=== PATIENT | male | born 1950 | race Caucasian/White ===

== ENCOUNTER → 2017-08-18 10:51 | Outpatient (CLI) | payer MEDICARE, OTHER, SELFPAY ==
[2017-08-18 12:33] LABS: Add Manual Diff / Slide Review NO; Basophils Percent Auto 0.4 % (0-2); Eosinophils Percent Auto 1.8 % (2-4); Hematocrit 41.2 % (41-53); Hemoglobin 14.1 g/dL (13.5-17.5); Lymphocytes Percent Auto 15.5 % (25-40); Mean Corpuscular HGB Conc 34.2 % (30-36); Mean Corpuscular Volume 93.6 fL (80-100); Monocytes Percent Auto 9.2 % (3-14); Neutrophils Absolute Auto 4200 /uL (3000-5900); Neutrophils Percent Auto 73.1 % (50-75); Platelet Count 181 X10^3/uL (150-400); Red Cell Distribution Width 14.2 % (11.6-14.8); White Blood Cell Count 5.8 X10^3/uL (4.5-11.0)
[2017-08-18 13:30] LABS: Carbon Dioxide 30 mmol/L (22-32); Chloride 100 mmol/L (98-107); HEMOLYSIS < 15 (0-50); Potassium 4.2 mmol/L (3.4-5.1); Sodium 141 mmol/L (137-145)
[2017-09-01 16:52] VITALS: BMI 28.5
== END ==
PROVIDERS: Visit Provider Physician Assistant Surgical
DX: M16.12 Unilateral primary osteoarthritis, left hip (principal); Z01.818 Encounter for other preprocedural examination; Z01.812 Encounter for preprocedural laboratory examination
CPT/HCPCS: 36415; 80051; 85025; 93005

== ENCOUNTER 2017-09-01 15:49 | Inpatient (IN) | payer MEDICARE, OTHER, SELFPAY ==
[2017-08-25 09:43] VITALS: BMI 28.5
[2017-09-01] VITALS (11 sets, daily range): BP systolic 105–147; BP diastolic 50–72; PULSE 56–68; RESP 10–16; TEMP 35–36.6; O2SAT 92–100; BMI 27.0
[2017-09-01] MEDS: CELECOXIB 200 MG CAPSULE PO (10:56)
[2017-09-01] MEDS: ACETAMINOPHEN 325 MG TABLET 975 MG PO (10:56)
[2017-09-01] MEDS: PREGABALIN 75 MG CAPSULE PO (10:57)
[2017-09-01] MEDS: LACTATED RINGERS 1,000 ML 42 ML IV (11:16)
--- NOTE | 2017-09-01 12:18 | PM.PREOP ---
Pre-operative Note Interval Note Pre-op Check: History & Physical Reviewed by Physician and Changes
[2017-09-01] MEDS: CEFAZOLIN 2 GM/100 ML FROZ.PIGGY IV ×2 (13:30→21:01)
--- NOTE | 2017-09-01 14:03 | SUR.OPER ---
Lateral on padded OR bed. Gel axillary roll. Arms secured on padded armboard with pillow supporting top arm. Padded hip positioner braces x4 - anterior and posterior chest and pelvis. Additional gel pad used anterior pelvis. Gel pad under bottom leg from knee to foot and secured with tape over sheet.
[2017-09-01] MEDS: BUPIVACAINE LIPOSOME 266 MG/20 ML VIAL INJ (14:09)
[2017-09-01] MEDS: BUPIVACAINE 0.5% W/ EPI (PF) 30 ML VIAL INJ (14:11)
[2017-09-01] MEDS: TRANEXAMIC ACID 1,000 MG VIAL 1000 MG INJ ×2 (14:14→14:56)
--- NOTE | 2017-09-01 15:39 | PM.OP.1 ---
Operative Date/Time/Diagnoses Date of procedure: 09/01/17 Time of procedure: 15:39 Pre-op diagnosis: Left hip degenerative joint disease Post-op diagnosis: same Procedure & Clinicians Procedure: Left total hip arthroplasty (CPT code 71116 with therapy administrative assistant) Same procedure as scheduled: Yes Indications: Patient is an 67-year-old male with severe left hip DJD. The patient has pain with activities and at rest, limited ambulation and activity tolerance, difficulties with ADLs, and failure of conservative treatment. We have discussed the nature of condition, treatment options, risks and benefits, and patient elects to proceed with total hip arthroplasty and gives informed consent. Surgeon: Franky Remy Application Support Lead: Sanjana Jimenez Anesthesia Type: General and Spinal Operative Notes Closure Type: primary Specimen(s): none sent Implants & Drains: Acetabulum: Morejon [employer] Nephew R3 acetabular component size 60 mm Femoral component: Morejon [employer] Nephew Synergy stem size 15 with high offset Femoral head: 36 mm + 4 Oxinium Estimated Blood Loss (mL): 100 Procedure in detail: After satisfaction induction of anesthetic, and administration of IV antibiotics, the patient was positioned in the lateral decubitus position with all bony prominences well padded and pelvic position secured using a hip senior analyst developer positioning device. Left hip and lower extremity prepped and draped in the usual sterile fashion, 1st dose of intravenous tranexamic acid was administered, then a longitudinal incision was created centered over the greater trochanter and carried sharply through the skin and subcutaneous tissues down to the fascia nayan which was divided longitudinally and retracted with a Charnley retractor. External rotators visualize, cut, tagged, and retracted posteriorly, then the capsule was cut in a T-type fashion with the corners tagged and retracted. Hip was dislocated and femoral neck cut made according to preoperative templating. Severe quantity/amount of hypertrophic labral and synovial tissue surrounding the acetabulum with dysplastic superior acetabular rim and tissue. Once this tissue was completely visualized and resected, acetabular retractors then placed, and the acetabular labrum and osteophytes were excised. The acetabulum was then sequentially reamed to 59 mm with an excellent circumferential ream and fit with the trial. The trial component was removed and a permanent size 60 mm Morejon and Nephew R3 acetabular component was selected, positioned, and impacted with satisfactory position and fixation achieved. Permanent liner was then inserted with the elevated lip directed posteriorly. Soft tissue then removed off the lateral femoral neck in the lateral neck was entered using a box osteotome. T-handled reamers placed down the canal followed by sequential broaching to 15 with the final broach left in place for trial reduction which demonstrated good leg length range of motion and stability characteristics, however, because it was felt that the acetabular component was placed somewhat medially and slightly superiorly anticipated use of a high offset stem so a high offset trial provided excellent leg length, range of motion, and stability characteristics with a 36 mm + 4 trial ball. The trial and broach were removed, and a permanent size 15 high offset Morejon and Nephew Synergy stem was selected and inserted with excellent position and fixation achieved. Another trial reduction yielded the above characteristics so the trial ball was exchanged for a permanent 36 mm +4 Oxinium ball. The hip was irrigated and reduced and excellent leg length range of motion and stability characteristics were achieved and maintained. Periarticular tissues were infiltrated with Exparel. The hip was copiously irrigated, and the capsule repaired with #2 Ethibond, and the piriformis was repaired back to the greater trochanter with the same. Fascia nayan closed with interrupted #1 Ethibond sutures, and the subcutaneous tissues were closed in 2 layers of 0 Vicryl and 2 0 Vicryl. Skin was closed with virgil and sterile dressings applied. Second dose of tranexamic acid was administered intravenously, and the anesthetic was terminated. Complications: none Condition: stable Disposition: PACU Plan for aftercare: Patient will be admitted to the acute care [facility], and anticipate discharge on postop day 1 with follow-up in office in 10-14 days. Outpatient physical therapy will be arranged and patient will continue to observe posterior hip precautions. Patient will continue use of postoperative Lovenox for 10 days postop.
--- NOTE | 2017-09-01 15:44 | P.OP_ITS ---
Operative Date/Time/Diagnoses Date of procedure: 09/01/17 Time of procedure: 15:39 Pre-op diagnosis: Left hip degenerative joint disease Post-op diagnosis: same Procedure & Clinicians Procedure: Left total hip arthroplasty (CPT code 55464 with community assistant) Same procedure as scheduled: Yes Indications: Patient is an 67-year-old male with severe left hip DJD. The patient has pain with activities and at rest, limited ambulation and activity tolerance, difficulties with ADLs, and failure of conservative treatment. We have discussed the nature of condition, treatment options, risks and benefits, and patient elects to proceed with total hip arthroplasty and gives informed consent. Surgeon: Franky Remy Gamb Cutter: Sanjana Jimenez Anesthesia Type: General and Spinal Operative Notes Closure Type: primary Specimen(s): none sent Implants & Drains: Acetabulum: Morejon [employer] Nephew R3 acetabular component size 60 mm Femoral component: Morejon [employer] Nephew Synergy stem size 15 with high offset Femoral head: 36 mm + 4 Oxinium Estimated Blood Loss (mL): 100 Procedure in detail: After satisfaction induction of anesthetic, and administration of IV antibiotics, the patient was positioned in the lateral decubitus position with all bony prominences well padded and pelvic position secured using a hip loom operator positioning device. Left hip and lower extremity prepped and draped in the usual sterile fashion, 1st dose of intravenous tranexamic acid was administered, then a longitudinal incision was created centered over the greater trochanter and carried sharply through the skin and subcutaneous tissues down to the fascia nayan which was divided longitudinally and retracted with a Charnley retractor. External rotators visualize, cut, tagged, and retracted posteriorly, then the capsule was cut in a T-type fashion with the corners tagged and retracted. Hip was dislocated and femoral neck cut made according to preoperative templating. Severe quantity/amount of hypertrophic labral and synovial tissue surrounding the acetabulum with dysplastic superior acetabular rim and tissue. Once this tissue was completely visualized and resected, acetabular retractors then placed, and the acetabular labrum and osteophytes were excised. The acetabulum was then sequentially reamed to 59 mm with an excellent circumferential ream and fit with the trial. The trial component was removed and a permanent size 60 mm Morejon and Nephew R3 acetabular component was selected, positioned, and impacted with satisfactory position and fixation achieved. Permanent liner was then inserted with the elevated lip directed posteriorly. Soft tissue then removed off the lateral femoral neck in the lateral neck was entered using a box osteotome. T-handled reamers placed down the canal followed by sequential broaching to 15 with the final broach left in place for trial reduction which demonstrated good leg length range of motion and stability characteristics, however, because it was felt that the acetabular component was placed somewhat medially and slightly superiorly anticipated use of a high offset stem so a high offset trial provided excellent leg length, range of motion, and stability characteristics with a 36 mm + 4 trial ball. The trial and broach were removed, and a permanent size 15 high offset Morejon and Nephew Synergy stem was selected and inserted with excellent position and fixation achieved. Another trial reduction yielded the above characteristics so the trial ball was exchanged for a permanent 36 mm +4 Oxinium ball. The hip was irrigated and reduced and excellent leg length range of motion and stability characteristics were achieved and maintained. Periarticular tissues were infiltrated with Exparel. The hip was copiously irrigated, and the capsule repaired with #2 Ethibond, and the piriformis was repaired back to the greater trochanter with the same. Fascia nayan closed with interrupted #1 Ethibond sutures, and the subcutaneous tissues were closed in 2 layers of 0 Vicryl and 2 0 Vicryl. Skin was closed with virgil and sterile dressings applied. Second dose of tranexamic acid was administered intravenously , and the anesthetic was terminated. Complications: none Condition: stable Disposition: PACU Plan for aftercare: Patient will be admitted to the acute care [facility], and anticipate discharge on postop day 1 with follow-up in office in 10-14 days. Outpatient physical therapy will be arranged and patient will continue to observe posterior hip precautions. Patient will continue use of postoperative Lovenox for 10 days postop.
--- NOTE | 2017-09-01 15:48 | DI.RAD.S_ITS ---
PROCEDURE: XR PELVIS 1-2V INDICATIONS: POST OP TOTAL LEFT HIP TECHNIQUE: Post-operative view of the pelvis and hip acquired. COMPARISON: None. FINDINGS: Bones: Acute postoperative changes of total left hip arthroplasty shows the appliances to be in expected alignment. Soft tissues: Overlying soft tissue changes are present. IMPRESSION: Acute postoperative changes total left hip arthroplasty. Dictated by: Burton Mason M.D. on 09/01/2017 at 16:19 Approved by: Burton Mason M.D. on 09/01/2017 at 16:21
--- NOTE | 2017-09-01 16:04 | SUR.PHASEI ---
REPORT CALLED TO CAMI SPENCER ON ACUTE CARE FLOOR. PT IN STABLE CONDITION, VSS. IV SITE CLEAR. OPERATIVE EXTREMITY WARM TO TOUCH, +PULSE, CAP REFILL WNL. DRSG OBSERVED TO BE C/D/I. PT TOLERATING ICE CHIPS AND DENIES NAUSEA. PT DENIES ANY PAIN/DISCOMFORT. PT ALERT AND TALKING TO RN.
--- NOTE | 2017-09-01 16:17 | SUR.PHASEI ---
BEDSIDE REPORT GIVEN TO CAMI SPENCER UPON ARRIVAL TO ACUTE CARE ROOM. PT AT BEDSIDE. PT ALERT AND TALKING TO STAFF AND RN. TRANSFERED CARE OF PT TO CAMI SPENCER.
[2017-09-01] MEDS: LACTATED RINGERS 1,000 ML 125 ML IV (17:50)
[2017-09-01] MEDS: ASPIRIN EC 81 MG TABLET PO (21:00)
[2017-09-02] VITALS (7 sets, daily range): BP systolic 101–136; BP diastolic 52–65; PULSE 58–88; RESP 16–18; TEMP 36.4–38.7; O2SAT 98–100
[2017-09-02] MEDS: CEFAZOLIN 2 GM/100 ML FROZ.PIGGY IV (04:39)
[2017-09-02 05:45] LABS: Hematocrit 34.2 % (41-53); Hemoglobin 11.6 g/dL (13.5-17.5)
--- NOTE | 2017-09-02 05:59 | PC.NURSE ---
Assumed care of pt from outgoing shift at 2300 7-16. Pt asleep. breathing normal pattern. bed in lowest, locked position. belongings and call light within reach. will continue to monitor pt. 0200- pt arouses to voice. completed and charted assessment. no further needs at this time. will continue to monitor 0500- pt awake- Iv completed of abx and IV fluids. advanced to regular diet. pt has not been out of bed, is waiting for PT. uses urinal. will continue to monitor pt for safety.
[2017-09-02] MEDS: ENOXAPARIN 40 MG/0.4 ML SYRINGE SUBCUT (09:09)
[2017-09-02] MEDS: SODIUM CHLORIDE 0.9% FLUSH 10 ML IV ×2 (09:11→20:52)
[2017-09-02] MEDS: HYDROCODONE/ACET 5/325 TABLET 1 TAB PO ×2 (09:11→23:20)
--- NOTE | 2017-09-02 09:25 | PT.IIE ---
Current Diagnoses Unilateral primary osteoarthritis, left hip (09/01/17) Presence of unspecified artificial hip joint (09/01/17) Surgery Performed Operation Date: 09/01/17 11:45 Actual Procedures p Total Hip Arthroplasty(Left) - Franky Remy MD Surgical History (Last Updated 08/25/17 @ 10:27 by Josefina May, RN) H/O knee surgery (Acute) History of carpal tunnel release (Acute) History of colonoscopy (Acute) History of tonsillectomy (Acute) History of total knee arthroplasty (Acute) Medical History (Last Updated 08/25/17 @ 10:27 by Josefina May, RN) Amputated toe of left foot (Acute) Arthritis (Acute) Hearing loss (Acute) History of aspiration pneumonitis (Acute) History of bronchitis (Acute) History of sinusitis (Acute) Impaired vision (Acute) Muscle cramps (Acute) Osteoarthritis of left hip (Acute) Recent URI (Acute) Physical Therapy Inpatient Evaluation/Re-Eval M1 PT/OT-IP Prior Functional Status Start: 09/02/17 11:41 Freq: NEEDED Status: Active Protocol: Document 09/02/17 11:42 [facility] (Rec: 09/02/17 12:04 [facility] [id number]) Medical Review Prior Functional Status Medical History Reviewed Yes Diet/Fluid Consistency Regular Thin Liquids Communication Independent Mobility and Gait 2 days prior was using FWW due to pain, and before that SPC. Pt states does prefers to use crutches. Activities of Daily Living and IADL's Independent, but recently increased time. Social History Household Members significant other friend(s) Living Arrangements House Number of Floors (Floors) Two Floors Number of Stairs To Enter/Railing? 3 wide steps with no rails. 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 Pt states does prefers to use crutches. Activities of Daily Living and IADL's Independent, but recently increased time. Social History Household Members significant other Living Arrangements House Number of Floors (Floors) Two Floors Number of Stairs To Enter/Railing? 3 wide steps with no rails. Home Environment High Toilet Walk in Shower Home Equipment Front Wheel Walker Straight Cane Crutches Raised Toilet Seat w/Armrests Shower Seat with Backrest Hand Held Shower Resistor Testing Machine Operator Sock Aid Employment Status Retired Additional Social History Comment pt has a daylight basement and stays on main level of the house. pt has an adjustable bed. M2 PT-IP Current Condition Start: 09/02/17 12:48 Freq: NEEDED Status: Active Protocol: Document 09/02/17 09:25 AB (Rec: 09/02/17 12:58 AB [id number]) Physical Therapy Current Condition Current Condition Evaluation Date 09/02/17 Treatment Diagnosis s/p L BONILLA Onset Date 09/01/17 Precautions Posterior Hip Precautions No Hip Flexion > 90 degrees No Hip Internal Rotation No Hip Adduction Weight Bearing Status Weight Bearing Status Weight Bear as Tolerated M3 PT-IP Subjective Start: 09/02/17 12:48 Freq: NEEDED Status: Active Protocol: Document 09/02/17 09:25 AB (Rec: 09/02/17 12:58 AB [id number]) Subjective Physical Therapy Visit Type Type Initial Evaluation Visit Start Time 09:25 Visit Stop Time 09:59 Total Visit Minutes 34 Number of CENTER LINE CUTTER OPERATOR Visits 0 Physical Therapy Visit Comments Patient Comments i am still numb on my left leg M4 PT-IP Mobility and Gait Start: 09/02/17 12:48 Freq: NEEDED Status: Active Protocol: Document 09/02/17 09:25 AB (Rec: 09/02/17 12:58 AB [id number]) PT-Bed Mobility Assessment Supine to Sit Supine to Sit Moderate Assistance PT-Transfer Assessment Sit to and From Stand Sit to and from Stand Maximum Assistance 1 Person Assistance Use of Upper Extremities Equipment Transfer Assistive Device Gait Belt Front Wheeled Walker Orthotic/Prosthetic Devices or Brace: No Transfers Transfer Destination Chair Transfer Technique Stand Step Pivot Transfer Ability Level of Assist Maximum Assistance 1 Person Assistance 2 Person Assistance Use of Upper Extremities Comments Mobility Comments pt with (+) L knee buckling during standing and transfers. Gait Assessment Comments Gait Comments unable due to L knee buckling and continues to c/o numbness on LLE PT-Balance Assessment Sitting Balance and Reactions Static Sitting Balance Ability Good Dynamic Sitting Balance Ability Good Standing Balance and Reactions Static Standing Balance Ability Poor Dynamic Standing Balance Ability Poor Device Used FWW M5 PT-IP Objective Assessments Start: 09/02/17 12:48 Freq: NEEDED Status: Active Protocol: Document 09/02/17 09:25 AB (Rec: 09/02/17 12:58 AB [id number]) Orientation Orientation/Cognition Level of Alertness Alert Orientation Name Age Birthday Month Date Year Day of Week Place Situation Safety Awareness Understands Safety Issues Gross Range of Motion Lower Extremity ROM Assessment Within Functional Limits Strength Lower Extremity Strength Assessment Left Impaired Hip 3-/5 Knee 2+/5 Ankle 3-/5 Sensation Assessment Sensation Gross Sensation Left LE Impaired Sensation Description Numbness M6 PT-IP Treatment Start: 09/02/17 12:48 Freq: NEEDED Status: Active Protocol: Document 09/02/17 09:25 AB (Rec: 09/02/17 12:58 AB [id number]) Physical Therapy Treatment Exercises Exercises Ankle Pumps Gluteal Sets Quad Sets Education Education Provided Precautions Weight Bearing Status Post-Op Packet Safety M7 PT-IP Assessment and Plan Start: 09/02/17 12:48 Freq: NEEDED Status: Active Protocol: Document 09/02/17 09:25 AB (Rec: 09/02/17 12:58 AB [id number]) PT Summary Assessment and Plan Potential Rehabilitation Potential Fair Status of Condition at Evaluation Evolving Summary Impairments Pain ROM Strength Balance Coordination Sensation Tone Cognition Bed Mobility Transfers Gait Activity Tolerance Assessment Summary pt requires 2 person assist with mobility at this time due to L knee buckling and continues to c/o L LE numbness affecting mobility. d/c plan depending on progress. will continue to assess. Goals Bed Mobility Goal Standby Assistance Transfer Goal Standby Assistance Crutches Front Wheeled Walker Gait Goal Standby Assistance Crutches Front Wheel Walker Gait Distance 150 Other Goals up/down 3 steps without rails using bilateral crutches SBA Days to Meet Goals 3 Frequency of Treatment Frequency Of Treatment Twice a Day Treatment Plan Physical Therapy Treatment Plan Bed Mobility Training Transfer Training Gait Training Therapeutic Exercise Balance Retraining Post Op Education Discharge Planning Hot or Cold Pack Neuromuscular Re-ed Coordination Retraining Manual Therapy Recommendations To Nursing Amount of Assist Needed 2 Person Assist Discharge Recommendations PT Discharge Recommendations Home with Assistance SNF Rehab Outpatient PT Other Discharge Recommendations SNF vs home with assist/outpt PT
--- NOTE | 2017-09-02 11:51 | PM.PNPO.1 ---
Subjective Date Patient Seen: 09/02/17 Time Patient Seen: 07:29 Interval history: POD #1 status post left total hip arthroplasty with Dr. Remy. His pain is well controlled with Tylenol. He has not been up with physical therapy yet. He is eating and voiding without any assistance. He is complaining that his leg is still numb. Plan to discharge home with at time of discharge. We will use Lovenox for DVT prophylaxis. Exam Vital Signs (past 8 hours): - 09/02/17 04:49 09/02/17 07:35 Temperature 97.8 F 97.9 F Pulse Rate 67 58 L Respiratory Rate 16 16 Blood Pressure 111/60 111/57 L Pulse Oximetry 98 99 Oxygen Delivery Method Room Air Narrative Exam Narrative: Patient lying in bed in no acute distress. Dressing on left hip is not adequately covering incision with about an inch of incision exposed. There is no drainage or erythema. He is able to actively dorsiflex and plantar flex. Calves are soft, compressible, nontender bilaterally. Objective Labs Result Diagrams: 09/02/17 05:15 Labs: Laboratory Results - last 24 hr 09/02/17 05:15 Hgb 11.6 L Hct 34.2 L Assessment & Plan Post-op (1) S/P total hip arthroplasty: Current Visit: Yes Status: Acute Postoperative Procedures Operation Date: 09/01/17 11:45 Actual Procedures Side Surgeon p Total Hip Arthroplasty Left Franky Remy MD POD #1 status post left total hip arthroplasty with Dr. Remy. Dressing will need to be changed. Plan get up and ambulate with physical therapy today. Continue current pain management. Lovenox for DVT prophylaxis. Plan to discharge once mobilizing safely with adequate pain control likely in next 1-2 days. Time Spent With Patient less than 15 minutes Quality VTE Deep Vein Thrombosis/Pulmonary Embolism Present on Admission: No
--- NOTE | 2017-09-02 12:04 | OT.IP.EVAL ---
Current Diagnoses Unilateral primary osteoarthritis, left hip (09/01/17) Presence of unspecified artificial hip joint (09/01/17) Surgery Performed Operation Date: 09/01/17 11:45 Actual Procedures p Total Hip Arthroplasty(Left) - Franky Remy MD Past Medical History (Last Updated 08/25/17 @ 10:27 by Josefina May, RN) Amputated toe of left foot (Acute) Arthritis (Acute) Hearing loss (Acute) History of aspiration pneumonitis (Acute) History of bronchitis (Acute) History of sinusitis (Acute) Impaired vision (Acute) Muscle cramps (Acute) Osteoarthritis of left hip (Acute) Recent URI (Acute) Surgical History (Last Updated 08/25/17 @ 10:27 by Josefina May, RN) H/O knee surgery (Acute) History of carpal tunnel release (Acute) History of colonoscopy (Acute) History of tonsillectomy (Acute) History of total knee arthroplasty (Acute) Occupational Therapy Inpatient Evaluation/Re-Eval M1 PT/OT-IP Prior Functional Status Start: 09/02/17 11:41 Freq: NEEDED Status: Active Protocol: Document 09/02/17 11:42 [facility] (Rec: 09/02/17 12:04 [facility] [id number]) Medical Review Prior Functional Status Medical History Reviewed Yes Diet/Fluid Consistency Regular Thin Liquids Communication Independent Mobility and Gait 2 days prior was using FWW due to pain, and before that SPC. Pt states does prefers to use crutches. Activities of Daily Living and IADL's Independent, but recently increased time. Social History Household Members significant other friend(s) Living Arrangements House Number of Floors (Floors) Two Floors Number of Stairs To Enter/Railing? 3 wide steps with no rails. Home Environment High Toilet Walk in Shower Home Equipment Front Wheel Walker Straight Cane Crutches Raised Toilet Seat Without Armrests Shower Seat with Backrest Capping Machine Operator Sock Aid Employment Status Retired M2 OT-IP Current Condition Start: 09/02/17 11:41 Freq: Status: Active Protocol: Document 09/02/17 11:42 [facility] (Rec: 09/02/17 12:04 [facility] [id number]) Occupational Therapy Current Condition Current Condition Evaluation Date 09/02/17 Treatment Diagnosis Left Hip Degenerative disease Diagnosis Onset Date 07/16/18 Post Operative Precautions Posterior Hip Precautions No Hip Flexion > 90 degrees No Hip Internal Rotation No Hip Adduction Weight Bearing Status Weight Bearing Status Full Weight Bearing M3 OT- IP Subjective and Pain Start: 09/02/17 11:41 Freq: Status: Active Protocol: Document 09/02/17 11:42 [facility] (Rec: 09/02/17 12:04 [facility] [id number]) OT- Subjective Occupational Therapy Visit Type Type Initial Evaluation Visit Start Time 11:10 Visit Stop Time 11:40 Total Visit Minutes 30 Occupational Therapy Visit Comments Patient Comments Pt very pleasant and cooperative. Patient/Caregiver Goals Pt would like to be able to go home tomorrow. OT Pain Assessment Pain When Pain Assessed At Rest Pain Present Pain Present Denied Pain M4 OT- IP ADL's Start: 09/02/17 11:41 Freq: Status: Active Protocol: Document 09/02/17 11:42 [facility] (Rec: 09/02/17 12:04 [facility] [id number]) OT [id number] General Evaluation Self-Feeding Ability Independent OT ADL-Grooming General Evaluation Grooming Ability Independent Areas Needing Assistance Retrieving/Set-up of Grooming Items OT ADL-Oral Care General Eval Oral Care Ability Independent OT ADL-Dressing General Eval Upper Body Dressing Ability Independent Lower Body Dressing Ability Maximum Assistance Areas Needing Assistance Retrieving/Set-up of Clothing Socks Comments OT Dressing Comments MAX A for LB dressing at this time without AED, able go over use of AED and hip precautions for dressing needs . OT ADL-Toileting Devices Toileting Assistive Devices Urinal Comments OT Toileting Comments At this time due to left leg not fully awake will need to use urinal. OT ADL-Bathing Comments OT Bathing Comments Not ready at this time. M6 OT- IP Functional Cognition Start: 09/02/17 11:41 Freq: Status: Active Protocol: Document 09/02/17 11:42 [facility] (Rec: 09/02/17 12:04 [facility] [id number]) Cognitive Factors Limiting Selfcare Function Cognitive Ability Level of Alertness Alert Patient Orientation Name Age Birthday Month Date Year Day of Week Place Situation Attention Span Ability Capable of Focused Attention Ability to Follow Commands Able to Follow Multi-Step Commands Memory Description No Deficits Noted Safety Awareness No Deficits Noted Underestimates Need for Assistance Problem Solving Ability No deficits Noted Executive Function Ability No Deficits Noted Cognitive Comments Cognitive Assessment Comments Pt feels once he is able to feel his leg that we will be able to go home and be able to manage steps with crutches, questionable if realistic goal for tomorrow. OT- Vision and Hearing OT- Hearing Assessment OT- Hearing Assessment WFL M7 OT- IP Mobility and Balance Start: 09/02/17 11:41 Freq: Status: Active Protocol: Document 09/02/17 11:42 [facility] (Rec: 09/02/17 12:04 [facility] [id number]) OT-Transfer Assessment Comments Mobility Comments Pt not wanting to get up at this time, per PT one person for bed mobility and two persons for transfer to recliner. OT- Gait Assessment Comments Gait Ability Comments Not ready at this time. OT- Balance Assessment Sitting Balance and Reactions Static Sitting Balance Ability Normal Dynamic Sitting Balance Ability Normal M8 OT- IP Objective Assessments Start: 09/02/17 11:41 Freq: Status: Active Protocol: Document 09/02/17 11:42 [facility] (Rec: 09/02/17 12:04 [facility] [id number]) OT Gross Range of Motion Upper Extremity Range of Motion Assessment Within Functional Limits OT Strength Upper Extremity Strength Assessment Within Functional Limits OT-Muscle Tone Assessment Muscle Tone WNL Yes M9 OT- IP Assessment and Plan Start: 09/02/17 11:41 Freq: Status: Active Protocol: Document 09/02/17 11:42 [facility] (Rec: 09/02/17 12:04 [facility] [id number]) OT Summary Assessment and Plan Summary OT Impairments Strength Balance Functional Mobility Grooming Dressing Toileting Bathing Toilet Transfers Shower Transfers Progress Towards Goals Slow Progress due to Medical Issues Slow Progress due to Activity Tolerance Assessment Summary Pt slow to progress as still not able to feel his left leg at this time and therefore needing two person assist for transfer only. Pt has good set -up at home and assist, therefore discharge pending his mobility, 3 steps, and recover. Goals Grooming Goal Standby Assistance Dressing Goal Standby Assistance Toileting Goal Independent Bathing Goal Standby Assistance Toilet Transfer Goal Standby Assistance Shower Transfer Goal Standby Assistance Patient/Caregiver Education Goal Caregiver Independent Assisting Patient Days to Meet Goals 3 Frequency of Treatment Frequency Of Treatment Once a Day Treatment Plan OT Treatment Plan ADL Training Functional Mobility Patient/Family Education Discharge Planning Discharge Recommendations OT Discharge Recommendations Home with Assistance Other Discharge Recommendations Pending recover of LLE and caregiver training for steps, may need short skilled rehab stay. Pt however insistent of going home.
--- NOTE | 2017-09-02 12:36 | PC.NURSE ---
Ortho: Kylee could shoot a nail gun into my hip and I wouldn't feel it. Pt still feels the effect of epidural. having minimal pain. Can move leg sl and does have sensation but both are still diminished. Awaiting to see Pt. Diet advanced and tolerates same w/out problems. Vd w/out diff. Lovenox teaching initiated. Pt gave own injection using correct tech this am. Discussed site rotation and sharps disposal. Pt has a dog at home who receives insulin. He is comfortable doing the whole thing. Pt is following his hip precautions. Resting comfortable in the chair at the moment. Cont w/poc.
--- NOTE | 2017-09-02 14:05 | PT.IPTN ---
Current Diagnoses Unilateral primary osteoarthritis, left hip (09/01/17) Presence of unspecified artificial hip joint (09/01/17) Surgery Performed Operation Date: 09/01/17 11:45 Actual Procedures p Total Hip Arthroplasty(Left) - Franky Remy MD Physical Therapy Treatment Note M2 PT-IP Current Condition Start: 09/02/17 12:48 Freq: NEEDED Status: Active Protocol: Document 09/02/17 09:25 [facility] (Rec: 09/02/17 12:58 AB [id number]) Physical Therapy Current Condition Current Condition Evaluation Date 09/02/17 Treatment Diagnosis s/p L BONILLA Onset Date 09/01/17 Precautions Posterior Hip Precautions No Hip Flexion > 90 degrees No Hip Internal Rotation No Hip Adduction Weight Bearing Status Weight Bearing Status Weight Bear as Tolerated M3 PT-IP Subjective Start: 09/02/17 12:48 Freq: NEEDED Status: Active Protocol: Document 09/02/17 14:05 [facility] (Rec: 09/02/17 17:09 AB [id number]) Subjective Physical Therapy Visit Type Type Treatment Note Visit Start Time 14:05 Visit Stop Time 14:27 Total Visit Minutes 22 Number of TREE EXPERT Visits 0 Physical Therapy Visit Comments Patient Comments pt stated that his LLE is still numb from the ankle up to upper thigh M4 PT-IP Mobility and Gait Start: 09/02/17 12:48 Freq: NEEDED Status: Active Protocol: Document 09/02/17 14:05 AB (Rec: 09/02/17 17:09 AB [id number]) PT-Bed Mobility Assessment Sit to Supine Sit to Supine Minimal Assistance 1 Person Assistance PT-Transfer Assessment Sit to and From Stand Sit to and from Stand Moderate Assistance Maximum Assistance 1 Person Assistance Use of Upper Extremities Equipment Transfer Assistive Device Gait Belt Front Wheeled Walker Orthotic/Prosthetic Devices or Brace: No Transfers Transfer Destination Bed Transfer Technique Stand Step Pivot Transfer Ability Level of Assist Maximum Assistance 1 Person Assistance Use of Upper Extremities Comments Mobility Comments pt continues to require assist to stabilize L knee Gait Assessment Gait Gait Assistance Required: Maximum Assistance 2 Person Assist Distance (Feet) (feet) 5 Able to Maintain Weight Bearing Status Yes During Gait Assistive Devices Assistive Device Gait Belt Front Wheeled Walker Orthotic/Prosthetic Devices or Brace: No Gait Deviations General Gait Pattern Decreased Stride Length Decreased Feet Clearance Factors Limiting Gait Function Factors Limiting Gait Function Decreased Activity Tolerance Decreased Strength Poor Balance Poor Safety Awareness M5 PT-IP Objective Assessments Start: 09/02/17 12:48 Freq: NEEDED Status: Active Protocol: Document 09/02/17 09:25 AB (Rec: 09/02/17 12:58 AB [id number]) Orientation Orientation/Cognition Level of Alertness Alert Orientation Name Age Birthday Month Date Year Day of Week Place Situation Safety Awareness Understands Safety Issues Gross Range of Motion Lower Extremity ROM Assessment Within Functional Limits Strength Lower Extremity Strength Assessment Left Impaired Hip 3-/5 Knee 2+/5 Ankle 3-/5 Sensation Assessment Sensation Gross Sensation Left LE Impaired Sensation Description Numbness M6 PT-IP Treatment Start: 09/02/17 12:48 Freq: NEEDED Status: Active Protocol: Document 09/02/17 14:05 AB (Rec: 09/02/17 17:09 AB [id number]) Physical Therapy Treatment Exercises Exercises Ankle Pumps Gluteal Sets Quad Sets Education Education Provided Precautions Weight Bearing Status Post-Op Packet Safety M7 PT-IP Assessment and Plan Start: 09/02/17 12:48 Freq: NEEDED Status: Active Protocol: Document 09/02/17 14:05 AB (Rec: 09/02/17 17:09 AB [id number]) PT Summary Assessment and Plan Potential Rehabilitation Potential Fair Summary Impairments Pain ROM Strength Balance Coordination Sensation Tone Cognition Bed Mobility Transfers Gait Activity Tolerance Assessment Summary pt requires 2 person assist with mobility at this time due to L knee buckling and continues to c/o L LE numbness affecting mobility. d/c plan depending on progress. will continue to assess. Goals Bed Mobility Goal Standby Assistance Transfer Goal Standby Assistance Crutches Front Wheeled Walker Gait Goal Standby Assistance Crutches Front Wheel Walker Gait Distance 150 Other Goals up/down 3 steps without rails using bilateral crutches SBA Days to Meet Goals 3 Frequency of Treatment Frequency Of Treatment Twice a Day Treatment Plan Physical Therapy Treatment Plan Bed Mobility Training Transfer Training Gait Training Therapeutic Exercise Balance Retraining Post Op Education Discharge Planning Hot or Cold Pack Neuromuscular Re-ed Coordination Retraining Manual Therapy Recommendations To Nursing Amount of Assist Needed 2 Person Assist Discharge Recommendations PT Discharge Recommendations Home with Assistance SNF Rehab Outpatient PT Other Discharge Recommendations SNF vs home with assist/outpt PT
--- NOTE | 2017-09-02 14:05 | CM.DANOTE ---
DCP/Assessment: Reviewed chart. Patient is a 67yr old male admitted to [facility] for left BONILLA performed on 09-01-[address] Remy. Primary payor is 1)Medicare 2)[employer]. No PCP identified. Met with patient explained CM/SW role. Patient reports that prior to surgery he was completely I in all ADL's. Patient has all needed DME in his residence. Patient resides with significant other/Kavita of 30 plus years. Patient hopes to d/c home within the next 24 hours. Therapy currently following. Patient has outpatient therapy scheduled to begin next week at [facility] in [facility]. Placed CM production team member name/number on white board. P: Home when medically stable. CM team to follow closely. ROBERTO Hayes Discharge Planning/Care Management CM Discharge Assessment Start: 09/02/17 14:04 Freq: Status: Active Protocol: Document 09/02/17 14:04 [facility] (Rec: 09/02/17 14:05 KJS [id number]) Discharge Planning Assessment Assigned Tuckpointer Cleaner Caulker ROBERTO/Yokasta History Provided By Patient Has Patient been admitted in last 30 No days? Prior Living Arrangements House Household Members significant other friend(s) Independent with ADL's Yes Is patient alert and oriented? Yes Caregiver for Another No DME Already Rented / Owned FWW / Walker Discharge Plan Home Review Status In Process Next Review Type Discharge Review
[2017-09-03 00:57] VITALS: TEMP 37.3
[2017-09-03 01:01] VITALS: TEMP 37.3
[2017-09-03 06:03] VITALS: BP 136/73; PULSE 85; RESP 16; TEMP 37.4; O2SAT 99
--- NOTE | 2017-09-03 06:04 | PC.NURSE ---
Assumed care of pt from outgoing shift at 2300, 7-17. Pt awake and assessed. pt complained of pain. has more sensation in leg now. states he is starting to feel the pain. given med per APR. pt fell asleep after that. slept most of the night. uses urinal. belongings and call light within reach. will continue to monitor pt for safety. bed alarm on. side rails upx3.
[2017-09-03 07:50] VITALS: BP 134/71; PULSE 85; RESP 16; TEMP 36.6; O2SAT 97
[2017-09-03] MEDS: HYDROCODONE/ACET 5/325 TABLET 1 TAB PO (09:07)
[2017-09-03] MEDS: ENOXAPARIN 40 MG/0.4 ML SYRINGE SUBCUT (09:07)
[2017-09-03] MEDS: SODIUM CHLORIDE 0.9% FLUSH 10 ML IV (09:08)
--- NOTE | 2017-09-03 10:25 | PM.DS.1 ---
History of Present Illness Date Patient Seen: 09/03/17 Time Patient Seen: 10:25 Chief complaint: [id number] LEFT TOTAL HIP ARTHROPLASTY Narrative: Details of the patient's history and physical can be found in the electronic chart. Discharge Providers Date of admission: 09/01/17 15:49 Consults: 09/01/17 16:26 Consult to Discharge Planning Routine Comment: Consult to Physical Therapy Evaluate & Treat Comment: Physician Instructions: post op BONILLA protocol Consult to Respiratory Therapy Evaluate & Treat Comment: Physician Instructions: Evaluate and treat 09/02/17 07:48 Consult to Occupational Therapy Evaluate & Treat Comment: s/p L. BONILLA Physician Instructions: Evaluate and treat Discharge provider: Naomi Diaz PA-C Summary Discharge Diagnosis: Left hip osteoarthritis Hospital Course: Patient was admitted and taken operating room where he had a left total hip arthroplasty by Dr. Remy. He recovered well as transfer to the floor for further care. Postoperative day 1 his spinal anesthesia block had not worn off so he was unable to ambulate with physical therapy. By postoperative 2 the spinal anesthesia block had worn off. His pain is under control, he is eating and drinking well and urinating without difficulty. He will be discharged home later today after physical therapy. Status at Discharge Cognitive/behavioral status at discharge: Alert and orient x3 Functional status at discharge: uses cane/walker Overall status at discharge: patient is progressing back to baseline Time Spent with Patient Less than 30 minutes Exam Vital Signs (past 8 hours): - 09/03/17 06:03 09/03/17 07:50 Temperature 99.3 F 97.8 F Pulse Rate 85 85 Respiratory Rate 16 16 Blood Pressure 136/73 H 134/71 H Pulse Oximetry 99 97 Oxygen Delivery Method Room Air Oxygen Flow Rate 0 Narrative Exam Narrative: Patient in bed. Appears comfortable. Left hip dressing clean dry and intact. Minimal swelling in left thigh. 5/5 left ankle strength. Neurovascular status intact. Bilateral calves soft and nontender. Patient alert and orient x3. Objective Labs Result Diagrams: 09/02/17 05:15 Discharge Plan Discharge Plan Patient Disposition: Home, Self-Care Discharge comment: Take Lovenox once a day for a total 8 days. After hours take aspirin 81 mg daily for 4 weeks. Take Aleve twice a day. Continue home exercises and start physical therapy next week. Discharge Med Rec/Prescriptions Prescriptions: New hydrocodone-acetaminophen 5-325 mg Tablet 1 tab PO Q4HR PRN (Reason: Pain, Moderate (4-6)) Qty: 60 RF: 0 enoxaparin [Lovenox] 40 mg/0.4 mL Syringe 40 mg Sub-Q DAILY 8 Days Qty: 8 RF: 0 Follow up/Referrals: Franky Remy MD [Physician] - (Follow-up at scheduled date and time. Contact the office with any issues or concerns.) Provider Discharge Instructions Diet: Diet as Tolerated Activity: Activity as tolerated. Ambulate with assistance of walker/cane. Posterior hip precautions. Cold/Heat Therapy: Apply ice to the extremity as needed for swelling and pain. Wound Care Report to your healthcare provider any signs of infection, such as:: chills, fever, increased pain and unusual drainage Dressing: Keep dressings on. May shower. Visit Report/Discharge Packet Instructions: DI for Hip Replacement, DI for Constipation, Enoxaparin Injection Discharge Data Attending Provider: Franky Remy Admit Date/Time: 09/01/17 15:49 Quality VTE Deep Vein Thrombosis/Pulmonary Embolism Present on Admission: No
--- NOTE | 2017-09-03 11:43 | PT.IPTN ---
Current Diagnoses Unilateral primary osteoarthritis, left hip (09/01/17) Presence of unspecified artificial hip joint (09/01/17) Surgery Performed Operation Date: 09/01/17 11:45 Actual Procedures p Total Hip Arthroplasty(Left) - Franky Remy MD Physical Therapy Treatment Note M2 PT-IP Current Condition Start: 09/02/17 12:48 Freq: NEEDED Status: Active Protocol: Document 09/02/17 09:25 AB (Rec: 09/02/17 12:58 AB [id number]) Physical Therapy Current Condition Current Condition Evaluation Date 09/02/17 Treatment Diagnosis s/p L BONILLA Onset Date 09/01/17 Precautions Posterior Hip Precautions No Hip Flexion > 90 degrees No Hip Internal Rotation No Hip Adduction Weight Bearing Status Weight Bearing Status Weight Bear as Tolerated M3 PT-IP Subjective Start: 09/02/17 12:48 Freq: NEEDED Status: Active Protocol: Document 09/03/17 11:35 [facility] (Rec: 09/03/17 11:43 GGD [id number]) Subjective Physical Therapy Visit Type Type Treatment Note Visit Start Time 11:00 Visit Stop Time 11:35 Total Visit Minutes 35 Number of MEDICAL SUPERINTENDENT Visits 1 Physical Therapy Visit Comments Patient Comments Pt states numbness is better, but still some behind the knee . Therapy Pain Assessment Pain When Pain Assessed At Rest Pain Present Pain Present Pain Reported Location Left hip Intensity 2 Scale Used Numeric (1 - 10) M4 PT-IP Mobility and Gait Start: 09/02/17 12:48 Freq: NEEDED Status: Active Protocol: Document 09/03/17 11:35 GGD (Rec: 09/03/17 11:43 GGD [id number]) PT-Bed Mobility Assessment Supine to Sit Supine to Sit Minimal Assistance 1 Person Assistance Scooting Scooting to Edge of Bed Standby Assistance PT-Transfer Assessment Sit to and From Stand Sit to and from Stand Contact Guard Assistance 1 Person Assistance Use of Upper Extremities Equipment Transfer Assistive Device Gait Belt Front Wheeled Walker Transfers Transfer Destination Chair Gait Assessment Gait Gait Assistance Required: Contact Guard Assist Distance (Feet) (feet) 80 Assistive Devices Assistive Device Gait Belt Front Wheeled Walker Orthotic/Prosthetic Devices or Brace: No Gait Deviations General Gait Pattern Decreased Stride Length Decreased Feet Clearance Factors Limiting Gait Function Factors Limiting Gait Function Decreased Activity Tolerance Decreased Strength Poor Balance Poor Safety Awareness Stair Climbing Assessment Evaluation Level of Assist On Stairs Contact Guard Assistance Devices Stair Climbing Assistive Devices Axillary Crutches Technique/Endurance Stair Climbing Direction Ascend and Descend Stair Climbing Technique Step to Step Number of Steps Climbed 3 Query Text: Stair Climbing Set # Repetitions (reps) 1 M5 PT-IP Objective Assessments Start: 09/02/17 12:48 Freq: NEEDED Status: Active Protocol: Document 09/02/17 09:25 AB (Rec: 09/02/17 12:58 AB [id number]) Orientation Orientation/Cognition Level of Alertness Alert Orientation Name Age Birthday Month Date Year Day of Week Place Situation Safety Awareness Understands Safety Issues Gross Range of Motion Lower Extremity ROM Assessment Within Functional Limits Strength Lower Extremity Strength Assessment Left Impaired Hip 3-/5 Knee 2+/5 Ankle 3-/5 Sensation Assessment Sensation Gross Sensation Left LE Impaired Sensation Description Numbness M6 PT-IP Treatment Start: 09/02/17 12:48 Freq: NEEDED Status: Active Protocol: Document 09/03/17 11:35 GGD (Rec: 09/03/17 11:43 GGD [id number]) Physical Therapy Treatment Exercises Exercises Ankle Pumps Gluteal Sets Quad Sets Supine Hip Abduction Education Education Provided Precautions M7 PT-IP Assessment and Plan Start: 09/02/17 12:48 Freq: NEEDED Status: Active Protocol: Document 09/03/17 11:35 GGD (Rec: 09/03/17 11:43 GGD [id number]) PT Summary Assessment and Plan Summary Assessment Summary Pt improving with mobility. He was safe with gait with FWW, mild unsteadiness with crutches. He was safe with stairs mobility, but slow moving. He need cues for controlled stand to sit. Frequency of Treatment Frequency Of Treatment Twice a Day Treatment Plan Physical Therapy Treatment Plan Bed Mobility Training Transfer Training Gait Training Therapeutic Exercise Balance Retraining Post Op Education Discharge Planning Hot or Cold Pack Neuromuscular Re-ed Coordination Retraining Manual Therapy Recommendations To Nursing Amount of Assist Needed 1 Person Assist Discharge Recommendations PT Discharge Recommendations Home with Assistance Outpatient PT
--- NOTE | 2017-09-03 12:09 | OT.IP.TRT ---
Current Diagnoses Unilateral primary osteoarthritis, left hip (09/01/17) Presence of unspecified artificial hip joint (09/01/17) Surgery Performed Operation Date: 09/01/17 11:45 Actual Procedures p Total Hip Arthroplasty(Left) - Franky Remy MD Occupational Therapy Treatment Note M2 OT-IP Current Condition Start: 09/02/17 11:41 Freq: Status: Active Protocol: Document 09/02/17 11:42 [facility] (Rec: 09/02/17 12:04 [facility] [id number]) Occupational Therapy Current Condition Current Condition Evaluation Date 09/02/17 Treatment Diagnosis Left Hip Degenerative disease Diagnosis Onset Date 09/01/17 Post Operative Precautions Posterior Hip Precautions No Hip Flexion > 90 degrees No Hip Internal Rotation No Hip Adduction Weight Bearing Status Weight Bearing Status Full Weight Bearing M3 OT- IP Subjective and Pain Start: 09/02/17 11:41 Freq: Status: Active Protocol: Document 09/03/17 12:09 [facility] (Rec: 09/03/17 12:09 [facility] [id number]) OT- Subjective Occupational Therapy Visit Type Type Treatment Note Notes Pt being discharged today, pt and significant other feeling good about OT needs and had no further questions or concerns .
--- NOTE | 2017-09-03 12:18 | PC.NURSE ---
Discharge: Feels ready for d/c home. Naomi MOY for ortho aware that pt still has significant numbness to the lt leg from his epidural and can't lift it off the bed. She has seen the patient and it is okay for him to go. Seen by PT and given final discharge instructions from them. Kvaita larson [facility] was present at time of teaching. PT stated he is safe to leave. D/c instructions given by Peace ALMANZA. Peace ALMANZA transported pt to SO car and they d/c home.
== END 2017-09-03 11:55 | disposition home or self-care (01) | DRG 470 ==
PROVIDERS: Admitting Provider Orthopaedic Surgery; Visit Provider Orthopaedic Surgery
PROC: 0SRB0JZ Replacement of Left Hip Joint with Synthetic Substitute, Open Approach (ICD-10-PCS; CPT 27130; principal; 2017-09-01 11:45)
DX: M16.12 Unilateral primary osteoarthritis, left hip (principal); Z96.653 Presence of artificial knee joint, bilateral; Z87.891 Personal history of nicotine dependence
CPT/HCPCS: 72170; 85014; 85018; 97116; 97162; 97165; 97530; C1776; C9290; J0690; J1100; J1650; J2250; J2274; J2405; J2704

== ENCOUNTER 2017-09-12 18:14 | Observation (INO) | payer MEDICARE, OTHER, SELFPAY ==
[2017-09-01 18:04] VITALS: BMI 27.0
[2017-09-12] VITALS (13 sets, daily range): BP systolic 103–152; BP diastolic 52–85; PULSE 64–666; RESP 13–20; TEMP 36.2–37.6; O2SAT 96–100; BMI 29.2
--- NOTE | 2017-09-12 | DI.RAD.S_ITS ---
PROCEDURE: XR HIP LT 1V INDICATIONS: INTRA-OPERATIVE OF LEFT HIP RE-LOCATION TECHNIQUE: Single intraoperative fluoroscopic view of of the hip acquired. COMPARISON: None. FINDINGS: Bones: Single fluoroscopic view demonstrates placement of a left total hip arthroplasty. IMPRESSION: Operative fluoroscopic view of left hip arthroplasty. Dictated by: Sue Rizzo M.D. on 09/13/2017 at 8:14 Approved by: Sue Rizzo M.D. on 09/13/2017 at 8:14
--- NOTE | 2017-09-12 18:16 | DI.RAD.S_ITS ---
PROCEDURE: XR HIP W PEL IF DONE LT 2V INDICATIONS: left hip dislocation TECHNIQUE: AP pelvis and lateral view of the left hip acquired. COMPARISON: None. FINDINGS: Bones: Patient is status post left hip arthroplasty. Femoral component of the left hip arthroplasty is dislocated superiorly. The visualized bony structures appear intact. Soft tissues: Overlying postoperative changes are noted. No suspicious soft tissue densities. Vasectomy clips noted. IMPRESSION: Dislocated left hip prosthesis. Dictated by: Varsha Melgar MD, PhD on 09/12/2017 at 18:46 Approved by: Varsha Melgar MD, PhD on 09/12/2017 at 18:47
--- NOTE | 2017-09-12 18:27 | ED_ITS ---
HPI - Extremity Injury (Lower) General Chief Complaint: Extremity Injury, Lower Stated Complaint: Post-op Hip Complication Time Seen by Provider: 09/12/17 18:16 Source: patient, EMS, RN notes reviewed and old records reviewed Mode of arrival: EMS Limitations: no limitations History of Present Illness HPI Narrative: Patient is a 67-year-old male who is 10 days postoperative of a left total hip arthroplasty. He was sitting with a his hip came out. He did not bend over he did not move. He has no numbness or tingling. He did not require any pain medicine with EMS. He is fairly comfortable. MD complaint: hip injury Related Data Previous Rx's Medication Instructions Recorded hydrocodone-acetaminophen 1 tab PO Q4HR PRN #60 tab 09/03/17 Allergies Allergy/AdvReac Type Severity Reaction Status Date / Time No Known Drug Allergies Allergy Verified 09/12/17 21:34 Review of Systems Review of Systems All systems reviewed & are unremarkable except as noted in HPI and below Constitutional Denies chills, Denies fever(s), Denies lethargy and Denies weakness ENT Ears, Nose, Mouth, and Throat: Denies dysphagia Cardiovascular Denies chest pain, Denies irregular heart rhythm, Denies lightheadedness, Denies palpitations, Denies dyspnea and Denies orthopnea Respiratory Denies cough and Denies dyspnea Gastrointestinal Gastrointestinal: Denies dysphagia and Denies vomiting Musculoskeletal Reports as per HPI Neurologic Denies weakness Endocrine Denies palpitations [facility] Medical History Amputated toe of left foot (Acute) Arthritis (Acute) Hearing loss (Acute) History of aspiration pneumonitis (Acute) History of bronchitis (Acute) History of sinusitis (Acute) Impaired vision (Acute) Muscle cramps (Acute) Osteoarthritis of left hip (Acute) Recent URI (Acute) Surgical History H/O knee surgery (Acute) History of carpal tunnel release (Acute) History of colonoscopy (Acute) History of tonsillectomy (Acute) History of total knee arthroplasty (Acute) Social History household members: significant other and friend(s) Smoking Status: Former smoker alcohol intake: current Exam Initial Vital Signs Initial Vital Signs: Vital Signs Temperature 99.7 F H 09/12/17 18:17 Pulse Rate 73 09/12/17 18:17 Respiratory Rate 20 09/12/17 18:17 Blood Pressure 143/85 H 09/12/17 18:17 Pulse Oximetry 99 09/12/17 18:17 GENERAL: Well appearing very comfortable man in no acute distress CARDIOVASCULAR: peripheral pulses in tact, cap refill <2 sec RESPIRATORY: No respiratory distress, speaks in full sentences without difficulty EXTREMITIES: Left leg is shortened peripheral pulses intact. NEUROLOGICAL: Cranial nerves II through XII grossly intact. Normal gait and speech. SKIN: Warm, dry, no petechiae, no rashes or lesions. Course Orders Ordered: ED Orders 09/12/17 18:16 XR hip w pel if done LT 2V Stat Discontinued Medications Acetaminophen (Tylenol) 325 mg PO NOW PRN PRN Reason: Pain, Mild (1-3) Hydrocodone Bitart/Acetaminophen ([place] 5/325) 1 tab PO Q30MIN PRN PRN Reason: Mild or moderate pain Fentanyl (Sublimaze) 50 mcg IV Q5MIN PRN PRN Reason: Pain, Moderate (4-6) Lactated Ringer's (Lactated Ringers) 1,000 mls @ 42 mls/hr IV CONT VIC Last Infusion: 09/12/17 23:21 Dose: 0 mls/hr Admin: 09/12/17 22:00 Dose: 42 mls/hr Morphine Sulfate (Morphine) 2 mg IV NOW ONE Stop: 09/12/17 19:35 Last Admin: 09/12/17 19:44 Dose: 2 mg Ondansetron HCl (Zofran) 4 mg IV NOW ONE Stop: 09/12/17 19:35 Last Admin: 09/12/17 19:44 Dose: 4 mg Ondansetron HCl (Zofran) 4 mg IV NOW PRN PRN Reason: Nausea And Vomiting Consultations Consultation #1: Dr. remy, his reviewed x-rays. Will take patient to reduction. Time: 18:35 Vital Signs - 8 hr 09/12/17 18:17 09/12/17 19:00 09/12/17 19:30 Temperature 99.7 F H Pulse Rate 73 65 66 Respiratory Rate 20 Blood Pressure 143/85 H Blood Pressure [Right Arm] 147/69 H 133/68 H Pulse Oximetry 99 100 100 09/12/17 20:00 09/12/17 20:30 09/12/17 21:00 Temperature Pulse Rate 67 76 71 Respiratory Rate Blood Pressure Blood Pressure [Right Arm] 149/64 H 135/70 H 131/66 H Pulse Oximetry 98 97 100 09/12/17 21:28 09/12/17 21:36 09/12/17 22:48 Temperature 98.4 F 97.5 F L Pulse Rate 71 67 66 Respiratory Rate 16 16 13 Blood Pressure 131/66 H 152/64 H 109/52 L Blood Pressure [Right Arm] Pulse Oximetry 100 99 97 09/12/17 22:53 09/12/17 22:58 09/12/17 23:01 Temperature 97.2 F L 97.6 F Pulse Rate 64 666 H 72 Respiratory Rate 17 14 15 Blood Pressure 103/58 L 117/64 115/70 Blood Pressure [Right Arm] Pulse Oximetry 97 96 98 09/12/17 23:15 Temperature 97.8 F Pulse Rate 71 Respiratory Rate 18 Blood Pressure 109/68 Blood Pressure [Right Arm] Pulse Oximetry 99 MDM - Extremity Injury (Lower) Imaging Data hip left: Radiologist's impression: PROCEDURE: XR HIP W PEL IF DONE LT 2V INDICATIONS: left hip dislocation TECHNIQUE: AP pelvis and lateral view of the left hip acquired. COMPARISON: None. FINDINGS: Bones: Patient is status post left hip arthroplasty. Femoral component of the left hip arthroplasty is dislocated superiorly. The visualized bony structures appear intact. Soft tissues: Overlying postoperative changes are noted. No suspicious soft tissue densities. Vasectomy clips noted. IMPRESSION: Dislocated left hip prosthesis. Dictated by: Varsha Melgar MD, PhD on 09/12/2017 at 18:46 Discharge Plan Departure Patient Disposition: Admitted as Observation Clinical Impression: Closed dislocation of left hip Discharge Date/Time: 09/12/17 21:28 Interventions: ED Discharge Assessment Last Done: 09/12/17 21:28 Admit Date/Time: 09/12/17 20:20 Admit Provider: Franky Remy
[2017-09-12] MEDS: ONDANSETRON 4 MG/2 ML INJ IV (19:44)
[2017-09-12] MEDS: MORPHINE 2 MG/ML INJ IV (19:44)
[2017-09-12] MEDS: LACTATED RINGERS 1,000 ML 42 ML IV (22:00)
--- NOTE | 2017-09-12 22:46 | PM.PREOP ---
Pre-operative Note Interval Note Pre-op Check: Yes History & Physical Reviewed by Physician Changes: No
--- NOTE | 2017-09-12 22:47 | PM.HP.1 ---
History of Present Illness Chief complaint: Post-op Hip Complication Patient History Medical History Amputated toe of left foot (Acute) Arthritis (Acute) Hearing loss (Acute) History of aspiration pneumonitis (Acute) History of bronchitis (Acute) History of sinusitis (Acute) Impaired vision (Acute) Muscle cramps (Acute) Osteoarthritis of left hip (Acute) Recent URI (Acute) Surgical History H/O knee surgery (Acute) History of carpal tunnel release (Acute) History of colonoscopy (Acute) History of tonsillectomy (Acute) History of total knee arthroplasty (Acute) Family & Social History Social History: household members significant other,friend(s) Safety & Behavioral: Feels Safe in Current Yes Environment Tobacco & Substance use: Smoking Status Former smoker alcohol intake current alcohol intake frequency a few times a month Substance Use Type does not use Meds Home Medications Medication Instructions Recorded Confirmed Type hydrocodone-acetaminophen 1 tab PO Q4HR PRN #60 tab 09/03/17 Rx Allergies Allergy/AdvReac Type Severity Reaction Status Date / Time No Known Drug Allergies Allergy Verified 09/12/17 21:34 Exam Vital Signs (past 8 hours): - 09/12/17 18:17 09/12/17 19:00 09/12/17 19:30 Temperature 99.7 F H Pulse Rate 73 65 66 Respiratory Rate 20 Blood Pressure 143/85 H Blood Pressure [Right Arm] 147/69 H 133/68 H Pulse Oximetry 99 100 100 09/12/17 20:00 09/12/17 20:30 09/12/17 21:00 Temperature Pulse Rate 67 76 71 Respiratory Rate Blood Pressure Blood Pressure [Right Arm] 149/64 H 135/70 H 131/66 H Pulse Oximetry 98 97 100 09/12/17 21:28 09/12/17 21:36 Temperature 98.4 F Pulse Rate 71 67 Respiratory Rate 16 16 Blood Pressure 131/66 H 152/64 H Blood Pressure [Right Arm] Pulse Oximetry 100 99 Oxygen Delivery Method Room Air Assessment & Plan Plan: Assessment/Plan Narrative: Plan closed reduction of dislocated LEFT BONILLA
--- NOTE | 2017-09-12 22:48 | PM.OP.1 ---
Operative Date/Time/Diagnoses Date of procedure: 09/12/17 Time of procedure: 22:48 Pre-op diagnosis: Dislocation LEFT BONILLA Post-op diagnosis: same Procedure & Clinicians Procedure: Closed reduction of dislocated left total hip arthroplasty under general anesthetic (CPT code 91329) Same procedure as scheduled: Yes Indications: 67-year-old male 2 weeks status post total hip arthroplasty was sitting in a low chair at a restaurant this afternoon when he felt his hip dislocate. He was brought to our hospital emergency room or dislocation was confirmed. We discussed the nature condition treatment options risks and benefits and recommend closed reduction under general anesthetic and patient gives informed consent. Surgeon: Franky Remy Click Yes if Unassisted: Yes Anesthesia Type: General Operative Notes Findings: Left hip posterior dislocation stable in neutral rotation to 120? of flexion and beyond but with 90? of flexion the hip is easily dislocated with any more than 30? of internal rotation. Procedure in detail: Patient brought to the operating room where general anesthetic with paralysis was induced. With a combination of flexion and traction the hip was easily reduced. Stability examination as noted above. Hip easily dislocated flexed beyond 90? and internally rotated past 30?. The hip was very stable at 60? of flexion and very stable in neutral or external rotation. Complications: none Condition: stable Disposition: PACU Plan for aftercare: Patient will strictly observe posterior hip precautions including no flexion greater than 60? and absolutely no internal rotation for 8-12 weeks. He may be weight-bearing as tolerated and will otherwise continue to follow the normal postoperative protocol.
--- NOTE | 2017-09-12 22:52 | P.OP_ITS ---
Operative Date/Time/Diagnoses Date of procedure: 09/12/17 Time of procedure: 22:48 Pre-op diagnosis: Dislocation LEFT BONILLA Post-op diagnosis: same Procedure & Clinicians Procedure: Closed reduction of dislocated left total hip arthroplasty under general anesthetic (CPT code 00356) Same procedure as scheduled: Yes Indications: 67-year-old male 2 weeks status post total hip arthroplasty was sitting in a low chair at a restaurant this afternoon when he felt his hip dislocate. He was brought to our hospital emergency room or dislocation was confirmed. We discussed the nature condition treatment options risks and benefits and recommend closed reduction under general anesthetic and patient gives informed consent. Surgeon: Franky Remy Click Yes if Unassisted: Yes Anesthesia Type: General Operative Notes Findings: Left hip posterior dislocation stable in neutral rotation to 120? of flexion and beyond but with 90? of flexion the hip is easily dislocated with any more than 30? of internal rotation. Procedure in detail: Patient brought to the operating room where general anesthetic with paralysis was induced. With a combination of flexion and traction the hip was easily reduced. Stability examination as noted above. Hip easily dislocated flexed beyond 90? and internally rotated past 30?. The hip was very stable at 60? of flexion and very stable in neutral or external rotation. Complications: none Condition: stable Disposition: PACU Plan for aftercare: Patient will strictly observe posterior hip precautions including no flexion greater than 60? and absolutely no internal rotation for 8- 12 weeks. He may be weight-bearing as tolerated and will otherwise continue to follow the normal postoperative protocol.
== END 2017-09-12 23:22 | disposition home or self-care (01) ==
LOC: ED 19:10 → AC 20:22
PROVIDERS: Admitting Provider Orthopaedic Surgery; Emergency Provider Emergency Medicine; Family Provider Orthopaedic Surgery; Visit Provider Orthopaedic Surgery
PROC: (CPT 27266; principal; 2017-09-12 20:50)
DX: T84.021A Dislocation of internal left hip prosthesis, initial encounter (principal); Z87.891 Personal history of nicotine dependence
CPT/HCPCS: 27266; 73501; 73502; 76000; 96374; 96375; 99283; 99285; G0378; J0330; J2270; J2405; J2704

== ENCOUNTER 2017-11-11 07:41 | Day surgery (SDC) | payer MEDICARE, OTHER, SELFPAY ==
[2017-09-01 18:04] VITALS: BMI 27.0
[2017-11-11] VITALS (10 sets, daily range): BP systolic 98–151; BP diastolic 58–77; PULSE 58–68; RESP 13–21; TEMP 36.3–37; O2SAT 95–100; BMI 27.6
--- NOTE | 2017-11-11 | DI.RAD.S_ITS ---
PROCEDURE: XR HIP LT 1V INDICATIONS: RELOCATION OF LEFT HIP TECHNIQUE: 1 view(s) of the hip acquired. COMPARISON: [facility], CR, XR PELVIS WITH LATERAL HIP LEFT, 11/05/2017, 11:25. [facility], CR, XR HIP LT 1V, 09/12/2017, 21:40. [facility], CR, XR HIP W PEL IF DONE LT 2V, 11/11/2017, 7:27. FINDINGS: Patient is status post left hip arthroplasty. There prostatic femoral head is relocated within the acetabulum. Soft tissues: Overlying postoperative changes are noted. No suspicious soft tissue densities. IMPRESSION: Left hip dislocation reduced. Dictated by: Edilson Angela M.D. on 11/11/2017 at 13:35 Approved by: Edilson Angela M.D. on 11/11/2017 at 13:38
--- NOTE | 2017-11-11 07:48 | ED_ITS ---
HPI - Extremity Injury (Lower) General Chief Complaint: Extremity Injury, Lower Stated Complaint: dislocated hip Time Seen by Provider: 11/11/17 07:47 Source: patient Mode of arrival: wheelchair Limitations: no limitations History of Present Illness HPI Narrative: Patient is a 67-year-old male with a known left hip arthroplasty performed by Dr. Remy. Has had multiple dislocations in the past. Patient states that his last dislocation had to be reduced in the operating room. He states that today he was sitting on his bed and bent over to tie his shoes when he felt his hip dislocate. Has been unable to ambulate since then. Has had minimal pain. His last meal was prior to midnight last night. Related Data Previous Rx's Medication Instructions Recorded hydrocodone-acetaminophen 1 tab PO Q4HR PRN #60 tab 09/03/17 Allergies Allergy/AdvReac Type Severity Reaction Status Date / Time No Known Drug Allergies Allergy Verified 09/12/17 21:34 Review of Systems Constitutional Denies fever(s) Cardiovascular Denies chest pain and Denies dyspnea Respiratory Denies dyspnea Musculoskeletal Comments: Left hip dislocation Integumentary/Breasts Denies lesions and Denies rash Neurologic Comments: No numbness or tingling left foot Hematologic/Lymphatic Denies easy bleeding and Denies easy bruising [facility] Medical History Amputated toe of left foot (Acute) Arthritis (Acute) Hearing loss (Acute) History of aspiration pneumonitis (Acute) History of bronchitis (Acute) History of sinusitis (Acute) Impaired vision (Acute) Muscle cramps (Acute) Osteoarthritis of left hip (Acute) Recent URI (Acute) Surgical History H/O knee surgery (Acute) History of carpal tunnel release (Acute) History of colonoscopy (Acute) History of tonsillectomy (Acute) History of total knee arthroplasty (Acute) Social History Smoking Status: Never smoker Exam Initial Vital Signs Initial Vital Signs: Vital Signs Temperature 98.1 F 11/11/17 07:59 Pulse Rate 68 11/11/17 07:59 Respiratory Rate 13 11/11/17 07:59 Blood Pressure 149/77 H 11/11/17 07:59 Pulse Oximetry 100 11/11/17 07:59 Const General: cooperative, healthy appearing, comfortable, well developed, well groomed and No acute distress Orientation: alert, awake and oriented x3 Resp Effort & Inspection: normal respiratory effort Skin Lesions: no lesions Rashes: no rashes Neuro Other: Sensation intact to light touch left lower extremity Extrem Other: Left lower extremity shortened. Psych Appearance: grossly normal and well kempt Course Orders Ordered: ED Orders 11/11/17 07:48 XR hip w pel if done LT 2V Stat Discontinued Medications Diazepam (Valium) 5 mg IV NOW ONE Stop: 11/11/17 08:44 Last Admin: 11/11/17 08:57 Dose: 5 mg Vital Signs - 8 hr 11/11/17 07:59 Temperature 98.1 F Pulse Rate 68 Respiratory Rate 13 Blood Pressure 149/77 H Pulse Oximetry 100 MDM - Extremity Injury (Lower) Imaging Data X-ray hip: Radiologist's impression: PROCEDURE: XR HIP W PEL IF DONE LT 2V INDICATIONS: possible dislocation TECHNIQUE: AP pelvis and lateral view of the left hip acquired. COMPARISON: [facility], , XR HIP W PEL IF DONE LT 2V, 09/12/2017, 18:28. FINDINGS: Bones: Patient is status post left hip arthroplasty. The femoral component of the left hip arthroplasty is dislocated superiorly. The visualized bony structures appear intact. Soft tissues: Overlying postoperative changes are noted. No suspicious soft tissue densities. Vasectomy clips noted. IMPRESSION: Dislocated left hip prosthesis stable. Dictated by: Varsha Melgar MD, PhD on 11/11/2017 at 8:20 Approved by: Varsha Melgar MD, PhD on 11/11/2017 at 8:22 [facility] Narrative Medical decision making narrative: Attempted reduction here in the emergency department. He was given Valium IV. I was unable to reduce the hip. I discussed the case with Dr. Remy who will bring the patient into the hospital and reduce him under general anesthesia. Patient is aware of this plan and agrees. Discharge Plan Departure Patient Disposition: Admitted as Observation Clinical Impression: Closed dislocation of left hip Prescriptions: No Action hydrocodone-acetaminophen 5-325 mg Tablet 1 tab PO Q4HR PRN (Reason: Pain, Moderate (4-6)) Qty: 60 RF: 0
[2017-11-11] MEDS: diazePAM 10 MG/2 ML SYRINGE 5 MG IV (08:57)
--- NOTE | 2017-11-11 09:12 | PC.NURSE ---
Left hip dislocation s/p hip surgery 11 weeks ago;
--- NOTE | 2017-11-11 09:12 | PC.NURSE ---
Patient with left hip dislocations s/p hip surgery 11 weeks ago;
[2017-11-11 09:52] LABS: Add Manual Diff / Slide Review NO; Basophils Percent Auto 0.4 % (0-2); Eosinophils Percent Auto 2.6 % (2-4); Hematocrit 40.7 % (41-53); Hemoglobin 13.6 g/dL (13.5-17.5); Lymphocytes Percent Auto 32.8 % (25-40); Mean Corpuscular HGB Conc 33.4 % (30-36); Mean Corpuscular Hemoglobin 30.6 PG (26-34); Mean Corpuscular Volume 91.6 fL (80-100); Monocytes Percent Auto 17.7 % (3-14); Neutrophils Absolute Auto 1600 /uL (3000-5900); Neutrophils Percent Auto 46.5 % (50-75); Platelet Count 148 X10^3/uL (150-400); Red Blood Cell Count 4.45 X10^6/uL (4.5-5.9); White Blood Cell Count 3.5 X10^3/uL (4.5-11.0)
[2017-11-11 09:57] LABS: BUN Creatinine Ratio 28.6 (6-22); Blood Urea Nitrogen 20 mg/dL (9-20); Calcium 8.8 mg/dL (8.4-10.2); Carbon Dioxide 24 mmol/L (22-32); Chloride 106 mmol/L (98-107); Estimated Glomerular Filt Rate > 60.0 mL/min (>60); Glucose 121 mg/dL (80-110); HEMOLYSIS 29 (0-50); Potassium 3.7 mmol/L (3.4-5.1); Sodium 142 mmol/L (137-145)
--- NOTE | 2017-11-11 13:07 | SUR.OPER ---
Supine on gel padded or table. Head on one pillow, safety strap to abdomen over blanket. Arms resting across chest and secured with blanket. Legs in surgeon control.
--- NOTE | 2017-11-11 13:08 | PM.PREOP ---
Pre-operative Note Interval Note Pre-op Check: Yes History & Physical Reviewed by Physician Changes: No
--- NOTE | 2017-11-11 13:08 | PM.CN ---
History of Present Illness Date Patient Seen: 11/11/17 Time Patient Seen: 13:08 Chief complaint: dislocated hip Reason for consult: Dislocated left total hip arthroplasty Narrative: 67-year-old male 3 months status post left total hip arthroplasty now with his 2nd documented posterior dislocation. Attempted closed reduction in emergency room was unsuccessful. Patient admitted to the operating room for closed reduction under general anesthetic. [facility] Medical History Amputated toe of left foot (Acute) Arthritis (Acute) Hearing loss (Acute) History of aspiration pneumonitis (Acute) History of bronchitis (Acute) History of sinusitis (Acute) Impaired vision (Acute) Muscle cramps (Acute) Osteoarthritis of left hip (Acute) Recent URI (Acute) Surgical History H/O knee surgery (Acute) History of carpal tunnel release (Acute) History of colonoscopy (Acute) History of tonsillectomy (Acute) History of total knee arthroplasty (Acute) Social History household members: significant other Smoking Status: Never smoker Meds Home Medications Medication Instructions Recorded Confirmed Type Probiotic 1 cap PO DAILY 11/11/17 11/11/17 History amoxicillin 500 mg PO .ONCE 11/11/17 11/11/17 History Allergies Allergy/AdvReac Type Severity Reaction Status Date / Time No Known Drug Allergies Allergy Verified 09/12/17 21:34 Exam Vital Signs (past 8 hours): - 11/11/17 07:59 11/11/17 09:41 11/11/17 11:04 Temperature 98.1 F 97.4 F L Pulse Rate 68 60 58 L Pulse Rate [Left Dorsalis Pedis] Respiratory Rate 13 13 16 Blood Pressure 149/77 H Blood Pressure [Left Arm] 151/62 H 142/65 H Pulse Oximetry 100 100 100 11/11/17 11:06 11/11/17 11:20 11/11/17 11:29 Temperature 98.6 F Pulse Rate 62 61 Pulse Rate [Left Dorsalis Pedis] 68 Respiratory Rate 16 16 Blood Pressure 142/64 H 134/70 Blood Pressure [Left Arm] Pulse Oximetry 100 100 Oxygen Delivery Method Room Air Objective Labs Result Diagrams: 11/11/17 07:50 11/11/17 07:50 Labs: Laboratory Results - last 24 hr 11/11/17 11/11/17 07:50 07:50 WBC 3.5 L RBC 4.45 L Hgb 13.6 Hct 40.7 L MCV 91.6 MCH 30.6 MCHC 33.4 RDW 15.0 H Plt Count 148 L Neut % (Auto) 46.5 L Lymph % (Auto) 32.8 [place] % (Auto) 17.7 H Eos % (Auto) 2.6 Baso % (Auto) 0.4 Neut # (Auto) 1600 L Sodium 142 Potassium 3.7 Chloride 106 Carbon Dioxide 24 BUN 20 Creatinine 0.70 Estimated GFR > 60.0 BUN/Creatinine Ratio 28.6 H Glucose 121 H Calcium 8.8 Assessment & Plan Plan: Assessment/Plan Narrative: Dislocated left total hip arthroplasty plan closed reduction under general anesthetic today. Will plan a revision arthroplasty for next week.
--- NOTE | 2017-11-11 13:17 | PM.OP.1 ---
Operative Date/Time/Diagnoses Date of procedure: 11/11/17 Time of procedure: 13:17 Pre-op diagnosis: Dislocated left total hip arthroplasty Post-op diagnosis: same Procedure & Clinicians Indications: 67-year-old male status post left total hip arthroplasty without his 2nd documented posterior hip dislocation after bending over to tie his shoes. Attempted closed reduction in emergency room and successful patient brought to the operating room for closed reduction under general anesthetic and informed consent obtained. Surgeon: Franky Remy Click Yes if Unassisted: Yes Anesthesia Type: General Operative Notes Specimen(s): none sent Procedure in detail: Patient brought to the operating room where general anesthetic was induced. Gentle manipulative reduction maneuver performed and the hip reduced without difficulty. Fluoroscopic images confirmed concentric reduction of the hip. Anesthetic terminated. Complications: none Condition: stable Disposition: PACU Plan for aftercare: Discharged home today we have already discussed the plan for return to the operating room next week for revision (probable liner and head revision.
== END 2017-11-11 13:51 | disposition home or self-care (01) ==
LOC: ED 09:56 → AC 10:17 → OR 13:02
PROVIDERS: Emergency Provider Emergency Medicine; Family Provider Orthopaedic Surgery; Visit Provider Orthopaedic Surgery
PROC: (CPT 27266; principal; 2017-11-11 13:45)
DX: T84.021A Dislocation of internal left hip prosthesis, initial encounter (principal)
CPT/HCPCS: 27266; 36591; 73501; 73502; 76000; 80048; 85025; 96374; 99282; 99284; J2250; J2704; J3010; J3360

== ENCOUNTER 2017-11-17 10:35 | Inpatient (IN) | payer MEDICARE, OTHER, SELFPAY ==
[2017-09-01 18:04] VITALS: BMI 27.0
[2017-11-17] VITALS (11 sets, daily range): BP systolic 86–143; BP diastolic 47–78; PULSE 47–63; RESP 10–18; TEMP 35.6–36.8; O2SAT 94–99; BMI 27.6
--- NOTE | 2017-11-17 | DI.RAD.S_ITS ---
PROCEDURE: XR PELVIS 1-2V INDICATIONS: TOTAL HIP TECHNIQUE: 1 view of the lower pelvis acquired. COMPARISON: [facility], CR, XR HIP LT 1V, 11/11/2017, 12:01. FINDINGS: Bones: Patient is status post left hip arthroplasty, with hardware components in expected positions. The hip joint appears congruent. The visualized bony structures appear intact. Soft tissues: Overlying postoperative changes are noted. No suspicious soft tissue densities. Vasectomy changes are seen. IMPRESSION: Normal postoperative examination. Dictated by: Antwan Pastrana M.D. on 11/17/2017 at 14:42 Approved by: Antwan Pastrana M.D. on 11/17/2017 at 14:42
--- NOTE | 2017-11-17 06:00 | DI.RAD.S_ITS ---
PROCEDURE: XR PELVIS 1-2V INDICATIONS: prosthesis placement TECHNIQUE: 1 view of the lower pelvis acquired. COMPARISON: [facility], CR, XR PELVIS 1-2V, 09/01/2017, 16:02. [facility], CR, XR HIP W PEL IF DONE LT 2V, 11/11/2017, 7:27. [facility], CR, XR HIP LT 1V, 11/11/2017, 12:01. FINDINGS: Bones: Patient is status post right hip arthroplasty, with hardware components in expected positions. The hip joint appears congruent. The visualized bony structures appear intact. Prior left hip arthroplasty hardware is seen. Soft tissues: Overlying postoperative changes are noted. No suspicious soft tissue densities. Vasectomy clips are seen. IMPRESSION: Normal postoperative examination. Dictated by: Antwan Pastrana M.D. on 11/17/2017 at 12:05 Approved by: Antwan Pastrana M.D. on 11/17/2017 at 12:05
[2017-11-17] MEDS: CELECOXIB 200 MG CAPSULE PO (11:26)
[2017-11-17] MEDS: ACETAMINOPHEN 325 MG TABLET 975 MG PO ×3 (11:26→20:07)
[2017-11-17] MEDS: PREGABALIN 75 MG CAPSULE PO (11:27)
--- NOTE | 2017-11-17 12:27 | PM.PREOP ---
Pre-operative Note Interval Note Pre-op Check: Yes History & Physical Reviewed by Physician Changes: No
[2017-11-17] MEDS: CEFAZOLIN 2 GM/100 ML FROZ.PIGGY IV ×2 (12:58→20:07)
[2017-11-17] MEDS: BUPIVACAINE 0.25% W/ EPI VIAL 50 ML INJ (13:44)
[2017-11-17] MEDS: LACTATED RINGERS 1,000 ML 42 ML IV (14:20)
--- NOTE | 2017-11-17 14:54 | PM.OP.1 ---
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 Patient has had 2 dislocations requiring reduction in the operating room and another episode of either near dislocation or subluxation. He has had no other specific postoperative complications or issues and has been otherwise doing well. His x-rays demonstrate stable and satisfactory position of implants however the acetabular component is somewhat proximal in the pelvis which is likely leading to soft tissue laxity. We have discussed the nature of condition, differential diagnosis, potential treatment options, risks, and benefits. Patient gives informed consent to proceed with revision arthroplasty, most likely acetabular liner exchange and femoral head and neck replacement. Surgeon: Franky Remy Molded Goods Controls Operator: Leilani Keller Anesthesia Type: General and Spinal Operative Notes Findings: Upon entry into the fascia nayan a large amount of serosanguineous fluid was obtained and sent for Gram stain and culture. There is no indication of infection but cultures sent as routine. After completion of the posterior approach, examination of the hip demonstrated fairly easy dislocation of the hip at 90? of flexion, minimal abduction, and 30? of internal rotation. After revision with the hip flexed 90?, and the hip abducted at least 30-40 degrees, the hip was stable to at least 75-80 degrees of internal rotation. The hip was also stable to extension and external rotation. Closure Type: primary Specimen(s): other (Two culture swabs were sent for Gram stain and culture and sensitivity..) Implants & Drains: Acetabulum: Morejon and Nephew R3 acetabular liner removed and replaced with 60 mm high offset (+4) liner Femoral head: 36 mm + 12 Oxinium Acetabular and femoral components originally placed at the time of primary surgery were well fixed and stable. Estimated Blood Loss (mL): 50 Blood products transfused: none Procedure in detail: After satisfactory induction of anesthetic, and administration of IV antibiotics, the patient was positioned in the lateral decubitus position with all bony prominences well padded and pelvic position secured using a hip sports coordinator positioning device. Left hip and lower extremity prepped and draped in the usual sterile fashion, longitudinal incision was created in line with the previous surgical scar and carried sharply through the skin and subcutaneous tissues down to the fascia nayan which was divided longitudinally and retracted with a Charnley retractor. Large amount of serosanguineous fluid obtained at this point and swab cultures were obtained and sent. There was minimal posterior pseudo capsule and the piriformis repair was no longer intact. Hip was dislocated as described above. Femoral head component was then removed from the femoral component with minimal distraction impaction. Moderate amount of capsular release and scar tissue debridement was performed particularly around the acetabular rim. The proximal femoral component and acetabular component appeared well fixed and were stable. Acetabular retractors then placed. After adequate debridement and visualization of the acetabular component, the high offset trial liner was inserted and a trial reduction was performed with a +8 femoral head, and excellent stability was achieved. The trial liner was removed and a permanent size 60 high offset (+4) Morejon and Nephew R3 acetabular liner was selected, positioned with the elevated lip directed posteriorly, and impacted with satisfactory position and fixation achieved. Trial reductions were then performed with a +8 and +12 femoral trial which demonstrated excellent leg length, range of motion, and stability characteristics, slightly more stable in full internal rotation with a +12 head did not appear to be over lengthened. The trial ball was then exchanged for a permanent 36 mm +12 Oxinium head. The hip was irrigated and reduced and excellent leg length range of motion and stability characteristics were achieved and maintained. The hip was copiously irrigated, and the pseudo- capsule repaired with #2 Ethibond. Fascia nayan closed with interrupted #1 Ethibond sutures, and the subcutaneous tissues were closed in 2 layers of 0 Vicryl and 2 0 Vicryl. Periarticular tissues then infiltrated with Marcaine. Skin was closed with virgil and sterile dressings applied. and the anesthetic was terminated. Complications: none Condition: stable Disposition: PACU Plan for aftercare: Patient will be admitted to the acute care [facility], and anticipate discharge on postop day 1 with follow-up in office in 10-14 days. Outpatient physical therapy will be arranged and patient will continue to observe posterior hip precautions. Patient will continue use of postoperative Lovenox for 10 days postop.
--- NOTE | 2017-11-17 15:03 | P.OP_ITS ---
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 Patient has had 2 dislocations requiring reduction in the operating room and another episode of either near dislocation or subluxation. He has had no other specific postoperative complications or issues and has been otherwise doing well. His x- rays demonstrate stable and satisfactory position of implants however the acetabular component is somewhat proximal in the pelvis which is likely leading to soft tissue laxity. We have discussed the nature of condition, differential diagnosis, potential treatment options, risks, and benefits. Patient gives informed consent to proceed with revision arthroplasty, most likely acetabular liner exchange and femoral head and neck replacement. Surgeon: Franky Remy Hurl Shaker: Leilani Keller Anesthesia Type: General and Spinal Operative Notes Findings: Upon entry into the fascia nayan a large amount of serosanguineous fluid was obtained and sent for Gram stain and culture. There is no indication of infection but cultures sent as routine. After completion of the posterior approach, examination of the hip demonstrated fairly easy dislocation of the hip at 90? of flexion, minimal abduction, and 30? of internal rotation. After revision with the hip flexed 90?, and the hip abducted at least 30-40 degrees, the hip was stable to at least 75-80 degrees of internal rotation. The hip was also stable to extension and external rotation. Closure Type: primary Specimen(s): other (Two culture swabs were sent for Gram stain and culture and sensitivity..) Implants & Drains: Acetabulum: Morejon and Nephew R3 acetabular liner removed and replaced with 60 mm high offset (+4) liner Femoral head: 36 mm + 12 Oxinium Acetabular and femoral components originally placed at the time of primary surgery were well fixed and stable. Estimated Blood Loss (mL): 50 Blood products transfused: none Procedure in detail: After satisfactory induction of anesthetic, and administration of IV antibiotics, the patient was positioned in the lateral decubitus position with all bony prominences well padded and pelvic position secured using a hip area development consultant positioning device. Left hip and lower extremity prepped and draped in the usual sterile fashion, longitudinal incision was created in line with the previous surgical scar and carried sharply through the skin and subcutaneous tissues down to the fascia nayan which was divided longitudinally and retracted with a Charnley retractor. Large amount of serosanguineous fluid obtained at this point and swab cultures were obtained and sent. There was minimal posterior pseudo capsule and the piriformis repair was no longer intact. Hip was dislocated as described above. Femoral head component was then removed from the femoral component with minimal distraction impaction. Moderate amount of capsular release and scar tissue debridement was performed particularly around the acetabular rim. The proximal femoral component and acetabular component appeared well fixed and were stable. Acetabular retractors then placed. After adequate debridement and visualization of the acetabular component, the high offset trial liner was inserted and a trial reduction was performed with a +8 femoral head, and excellent stability was achieved. The trial liner was removed and a permanent size 60 high offset (+4) Morejon and Nephew R3 acetabular liner was selected, positioned with the elevated lip directed posteriorly, and impacted with satisfactory position and fixation achieved. Trial reductions were then performed with a +8 and +12 femoral trial which demonstrated excellent leg length, range of motion, and stability characteristics, slightly more stable in full internal rotation with a +12 head did not appear to be over lengthened. The trial ball was then exchanged for a permanent 36 mm +12 Oxinium head. The hip was irrigated and reduced and excellent leg length range of motion and stability characteristics were achieved and maintained. The hip was copiously irrigated, and the pseudo - capsule repaired with #2 Ethibond. Fascia nayan closed with interrupted #1 Ethibond sutures, and the subcutaneous tissues were closed in 2 layers of 0 Vicryl and 2 0 Vicryl. Periarticular tissues then infiltrated with Marcaine. Skin was closed with virgil and sterile dressings applied. and the anesthetic was terminated. Complications: none Condition: stable Disposition: PACU Plan for aftercare: Patient will be admitted to the acute care [facility], and anticipate discharge on postop day 1 with follow-up in office in 10-14 days. Outpatient physical therapy will be arranged and patient will continue to observe posterior hip precautions. Patient will continue use of postoperative Lovenox for 10 days postop.
[2017-11-17] MEDS: LACTATED RINGERS 1,000 ML 125 ML IV (16:27)
[2017-11-17] MEDS: ASPIRIN EC 81 MG TABLET PO (20:07)
[2017-11-18] MEDS: LACTATED RINGERS 1,000 ML 125 ML IV (00:30)
--- NOTE | 2017-11-18 00:33 | PC.NURSE ---
Patient is alert and oriented. Breath sounds CTA with RA sat of 97%. HRR. Denies nausea. BT present and has passed flatus. Has not been able to void since return from surgery and now urinated in urinal 25cc (looked like water in urinal) so bladder scan showing 495cc in bladder so straight cathed as per order with 550cc returned; clear mj. Patient tolerated procedure well. Is independent with bed mobility. Dressing to left hip is CDI. CMS intact distally but still with some numbness in bilateral thighs. Slight weakness noted in left LE. Denies pain. Wearing bilateral SCD's. Fall risk score low at this time as has not been out of bed.
[2017-11-18 04:09] VITALS: BP 104/55; PULSE 52; RESP 16; TEMP 36.1; O2SAT 99
[2017-11-18] MEDS: CEFAZOLIN 2 GM/100 ML FROZ.PIGGY IV (05:01)
[2017-11-18 06:02] LABS: Hematocrit 35.1 % (41-53); Hemoglobin 11.9 g/dL (13.5-17.5)
[2017-11-18 07:28] VITALS: BP 110/57; PULSE 54; RESP 16; TEMP 36.1; O2SAT 99
--- NOTE | 2017-11-18 08:25 | P.DS_ITS ---
History of Present Illness Date Patient Seen: 11/18/17 Time Patient Seen: 08:22 Chief complaint: [id number] REVISION LEFT TOTAL HIP ARTHROPLASTY Narrative: Details of the patient's H&P can be found in the electronic chart. 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 Remy. He recovered well and was transferred to the floor for further care. Postop day 1 patient was eating well , pain under control, ambulating well and able to urinate without difficulty. Patient was ready to be discharged home. Patient has physical therapy set up for him next week. He has his follow-up appointment already scheduled. Aspirin 81 mg b.i.d. will be used for DVT prophylaxis. Patient already has his discharge pain medications. Status at Discharge Cognitive/behavioral status at discharge: Alert and orient x3 Functional status at discharge: uses cane/walker Overall status at discharge: patient is progressing back to baseline Time Spent with Patient Less than 30 minutes Exam Vital Signs (past 8 hours): - 11/18/17 04:09 Temperature 96.9 F L Pulse Rate 52 L Respiratory Rate 16 Blood Pressure 104/55 L Pulse Oximetry 99 Oxygen Delivery Method Room Air Narrative Exam Narrative: Patient sitting in chair. Having breakfast. Appears comfortable. Alert orient x3. Left hip dressing clean dry and intact. Moderate swelling left thigh. Bilateral calves soft nontender. Neurovascular status intact. 5/5 BLE strength. Objective Labs Result Diagrams: 11/18/17 05:16 Labs: Laboratory Results - last 24 hr 11/18/17 05:16 Hgb 11.9 L Hct 35.1 L Discharge Plan Discharge Plan Patient Disposition: Home Discharge comment: Start physical therapy next week. Discharge Med Rec/Prescriptions Prescriptions: New acetaminophen 325 mg Tablet 975 mg PO TID Qty: 0 RF: 0 aspirin 81 mg Tablet,Delayed Release (Dr/Ec) 81 mg PO BID Qty: 0 RF: 0 Continue amoxicillin 500 mg Capsule 500 mg PO .ONCE RF: 0 Probiotic 1 cap PO DAILY RF: 0 Follow up/Referrals: Franky Remy MD [Physician] - (Follow-up as scheduled date and time. Contact office with any issues or concerns.) Provider Discharge Instructions Diet: Diet as Tolerated Activity: Activity as tolerated. Posterior hip precautions. Ambulate with assistance of a walker/cane. Cold/Heat Therapy: Apply ice as needed for inflammation and swelling. Skin/Wound/Dressing Care Report to your healthcare provider any signs of infection, such as:: chills, fever, increased pain and unusual drainage Dressing: Keep dressing clean dry and intact. Discharge Data Attending Provider: Franky Remy Admit Date/Time: 11/17/17 10:35 Quality VTE Deep Vein Thrombosis/Pulmonary Embolism Present on Admission: No
[2017-11-18] MEDS: ACETAMINOPHEN 325 MG TABLET 975 MG PO (08:56)
[2017-11-18] MEDS: ASPIRIN EC 81 MG TABLET PO (08:56)
--- NOTE | 2017-11-18 09:11 | PT.IIE ---
Current Diagnoses Unilateral primary osteoarthritis, left hip (11/17/17) Recurrent dislocation, right hip (11/17/17) Surgery Performed Operation Date: 11/17/17 12:45 Actual Procedures p Total Hip Arthroplasty Revision(Left) - Franky Remy MD Surgical History (Last Reviewed 11/11/17 @ 08:57 by Gopal Salazar DO) H/O knee surgery (Acute) History of carpal tunnel release (Acute) History of colonoscopy (Acute) History of tonsillectomy (Acute) History of total knee arthroplasty (Acute) Medical History (Last Reviewed 11/18/17 @ 07:34 by Salvador Morse, PT, [place]) Amputated toe of left foot (Acute) Arthritis (Acute) Hearing loss (Acute) History of aspiration pneumonitis (Acute) History of bronchitis (Acute) History of sinusitis (Acute) Impaired vision (Acute) Muscle cramps (Acute) Osteoarthritis of left hip (Acute) Recent URI (Acute) Physical Therapy Inpatient Evaluation/Re-Eval M1 PT/OT-IP Prior Functional Status Start: 11/18/17 08:03 Freq: NEEDED Status: Active Protocol: Document 11/18/17 08:04 EA (Rec: 11/18/17 08:13 EA [id number]) Medical Review Prior Functional Status Medical History Reviewed Yes Diet/Fluid Consistency Regular Communication Normal Mobility and Gait Patient was able to ambulate more than 2 blocks with the use straight cane Activities of Daily Living and IADL's Independent Prior Functional Level (Other details) Indep in all ADLs and does high activities such personal home construction prior to 3rd dislocation and revision. Social History Household Members significant other Living Arrangements House Number of Floors (Floors) One Floor Number of Stairs To Enter/Railing? 3 steps with rails to both sides Home Environment Walk in Shower Home Equipment Front Wheel Walker Straight Cane Crutches Raised Toilet Seat w/Armrests Employment Status Retired Additional Social History Comment Patient is very active at home and does a lot of home excavation prior to 3rd left hip disclocation and surgery. M2 PT-IP Current Condition Start: 11/18/17 08:03 Freq: NEEDED Status: Active Protocol: Document 11/18/17 08:04 EA (Rec: 11/18/17 08:13 EA [id number]) Physical Therapy Current Condition Current Condition Evaluation Date 09/02/17 Treatment Diagnosis S/P left HIP BONILLA revision Onset Date 11/17/17 Precautions Posterior Hip Precautions No Hip Flexion > 90 degrees No Hip Internal Rotation No Hip Adduction Weight Bearing Status Weight Bearing Status Weight Bear as Tolerated M3 PT-IP Subjective Start: 11/18/17 08:03 Freq: NEEDED Status: Active Protocol: Document 11/18/17 08:04 EA (Rec: 11/18/17 08:13 EA [id number]) Subjective Physical Therapy Visit Type Type Initial Evaluation Visit Start Time 07:30 Visit Stop Time 08:00 Total Visit Minutes 30 Physical Therapy Visit Comments Patient Comments Patient agreeable to [place] [facility] Patient Goals Patient wants to be indep in all transfers prior to discharge today. Therapy Pain Assessment Pain When Pain Assessed At Rest Pain Present Pain Present Pain Reported Location Left Posterior Hip Intensity 2 Scale Used Numeric (1 - 10) Description Throbbing M4 PT-IP Mobility and Gait Start: 11/18/17 08:03 Freq: NEEDED Status: Active Protocol: Document 11/18/17 08:04 EA (Rec: 11/18/17 08:13 EA [id number]) PT-Bed Mobility Assessment Supine to Sit Supine to Sit Standby Assistance Sit to Supine Sit to Supine Standby Assistance Scooting Scooting to Edge of Bed Standby Assistance PT-Transfer Assessment Sit to and From Stand Sit to and from Stand Standby Assistance Equipment Transfer Assistive Device Gait Belt Front Wheeled Walker Transfers Transfer Destination Bed Chair Bedside Commode Transfer Technique stepping transfers Transfer Ability Level of Assist Standby Assistance Comments Mobility Comments Patient able to ambulate 10 ft with slight antalgic Gait Assessment Gait Gait Assistance Required: Contact Guard Assist Distance (Feet) 10 Able to Maintain Weight Bearing Status Yes During Gait Assistive Devices Assistive Device Front Wheeled Walker Gait Deviations General Gait Pattern Antalgic Factors Limiting Gait Function Factors Limiting Gait Function Decreased Activity Tolerance Decreased Strength Pain Comments Gait Comments Patient able to ambulate 10 ft with slight antalgic PT-Balance Assessment Sitting Balance and Reactions Static Sitting Balance Ability Normal Dynamic Sitting Balance Ability Good Standing Balance and Reactions Static Standing Balance Ability Good Dynamic Standing Balance Ability Fair M5 PT-IP Objective Assessments Start: 11/18/17 08:03 Freq: NEEDED Status: Active Protocol: Document 11/18/17 08:53 EA (Rec: 11/18/17 09:04 EA [id number]) Orientation Orientation/Cognition Level of Alertness Alert Orientation Name Month Year Language Function Ability No Deficits Noted Safety Awareness Understands Safety Issues Memory Description No Deficits Noted Gross Range of Motion Upper Extremity ROM Assessment Within Functional Limits Lower Extremity ROM Assessment Left Impaired Impairments N/A due to pre-caution but with a least WFL to allowed hip ROM Strength Upper Extremity Strength Assessment Within Functional Limits Lower Extremity Strength Assessment Left Impaired Hip 3/5 Coordination Assessment Gross Coordination Gross Coordination WNL Assessment Foot Tapping Test Normal Performance Coordination Comments WFL Sensation Assessment Sensation Gross Sensation WNL Light Touch Intact Comments Sensation Comments Both LE's are WFL M6 PT-IP Treatment Start: 11/18/17 08:03 Freq: NEEDED Status: Active Protocol: Document 11/18/17 08:53 EA (Rec: 11/18/17 09:04 EA [id number]) Physical Therapy Treatment Exercises Exercises Ankle Pumps Gluteal Sets Quad Sets Heel Slides Straight Leg Raises Education Education Provided Precautions Weight Bearing Status Post-Op Packet Safety M7 PT-IP Assessment and Plan Start: 11/18/17 08:03 Freq: NEEDED Status: Active Protocol: Document 11/18/17 08:53 EA (Rec: 11/18/17 09:04 EA [id number]) PT Summary Assessment and Plan Potential Rehabilitation Potential Good Status of Condition at Evaluation Stable Summary Impairments Pain Strength Bed Mobility Transfers Gait Activity Tolerance Progress Towards Goals Progressing Toward Goals Assessment Summary Patient exhibits slight difficulty with dynamic balance and activity tolerance due to pain and weakness to left LE, however no instability noted. Patient would benefit with skilled PT to practice stairs, transfers,& increasing distance ambulation prior to discharge. Pt exhibits good rehab potential. Goals Bed Mobility Goal Independent Transfer Goal Independent Gait Goal Independent Gait Distance 50 ft Days to Meet Goals 1 Frequency of Treatment Frequency Of Treatment Twice a Day Treatment Plan Physical Therapy Treatment Plan Bed Mobility Training Transfer Training Gait Training Therapeutic Exercise Post Op Education Discharge Planning Hot or Cold Pack Recommendations To Nursing Amount of Assist Needed 1 Person Assist Discharge Recommendations PT Discharge Recommendations Home with Assistance Other Discharge Recommendations Outpatient PT
--- NOTE | 2017-11-18 11:02 | PT.IPTN ---
Current Diagnoses Unilateral primary osteoarthritis, left hip (11/17/17) Recurrent dislocation, right hip (11/17/17) Surgery Performed Operation Date: 11/17/17 12:45 Actual Procedures p Total Hip Arthroplasty Revision(Left) - Franky Remy MD Physical Therapy Treatment Note M2 PT-IP Current Condition Start: 11/18/17 08:03 Freq: NEEDED Status: Active Protocol: Document 11/18/17 08:04 EA (Rec: 11/18/17 08:13 EA [id number]) Physical Therapy Current Condition Current Condition Evaluation Date 09/02/17 Treatment Diagnosis S/P left HIP BONILLA revision Onset Date 11/17/17 Precautions Posterior Hip Precautions No Hip Flexion > 90 degrees No Hip Internal Rotation No Hip Adduction Weight Bearing Status Weight Bearing Status Weight Bear as Tolerated M3 PT-IP Subjective Start: 11/18/17 08:03 Freq: NEEDED Status: Active Protocol: Document 11/18/17 10:55 GGD (Rec: 11/18/17 11:02 GGD [email or web address]) Subjective Physical Therapy Visit Type Type Treatment Note Visit Start Time 10:30 Visit Stop Time 10:55 Total Visit Minutes 25 Number of SAUSAGE CUTTER Visits 1 Physical Therapy Visit Comments Patient Comments Pt willing to try stairs before D/C. Therapy Pain Assessment Pain When Pain Assessed At Rest Pain Present Pain Present Pain Reported M4 PT-IP Mobility and Gait Start: 11/18/17 08:03 Freq: NEEDED Status: Active Protocol: Document 11/18/17 10:55 GGD (Rec: 11/18/17 11:02 GGD [email or web address]) PT-Transfer Assessment Sit to and From Stand Sit to and from Stand Standby Assistance Use of Upper Extremities Equipment Transfer Assistive Device Gait Belt Front Wheeled Walker Transfers Transfer Destination Chair Wheelchair Gait Assessment Gait Gait Assistance Required: Contact Guard Assist Distance (Feet) 30 Able to Maintain Weight Bearing Status Yes During Gait Assistive Devices Assistive Device Front Wheeled Walker Orthotic/Prosthetic Devices or Brace: No Gait Deviations General Gait Pattern Antalgic Factors Limiting Gait Function Factors Limiting Gait Function Decreased Strength Limited Range of Motion Pain Stair Climbing Assessment Evaluation Level of Assist On Stairs Contact Guard Assistance Devices Stair Climbing Assistive Devices Right Railing Technique/Endurance Stair Climbing Direction Ascend and Descend Stair Climbing Technique Step to Step Number of Steps Climbed 3 Query Text: Stair Climbing Set # Repetitions (reps) 1 M5 PT-IP Objective Assessments Start: 11/18/17 08:03 Freq: NEEDED Status: Active Protocol: Document 11/18/17 08:53 EA (Rec: 11/18/17 09:04 EA [id number]) Orientation Orientation/Cognition Level of Alertness Alert Orientation Name Month Year Language Function Ability No Deficits Noted Safety Awareness Understands Safety Issues Memory Description No Deficits Noted Gross Range of Motion Upper Extremity ROM Assessment Within Functional Limits Lower Extremity ROM Assessment Left Impaired Impairments N/A due to pre-caution but with a least WFL to allowed hip ROM Strength Upper Extremity Strength Assessment Within Functional Limits Lower Extremity Strength Assessment Left Impaired Hip 3/5 Coordination Assessment Gross Coordination Gross Coordination WNL Assessment Foot Tapping Test Normal Performance Coordination Comments WFL Sensation Assessment Sensation Gross Sensation WNL Light Touch Intact Comments Sensation Comments Both LE's are WFL M6 PT-IP Treatment Start: 11/18/17 08:03 Freq: NEEDED Status: Active Protocol: Document 11/18/17 10:55 GGD (Rec: 11/18/17 11:02 GGD [email or web address]) Physical Therapy Treatment Education Education Provided Precautions Safety M7 PT-IP Assessment and Plan Start: 11/18/17 08:03 Freq: NEEDED Status: Active Protocol: Document 11/18/17 10:55 GGD (Rec: 11/18/17 11:02 GGD [email or web address]) PT Summary Assessment and Plan Summary Assessment Summary Pt has good awareness of hip precautions. He was safe and stable with gait and stairs. He moves quickly and mildly impulsive. Frequency of Treatment Frequency Of Treatment Twice a Day Treatment Plan Physical Therapy Treatment Plan Bed Mobility Training Transfer Training Gait Training Therapeutic Exercise Post Op Education Discharge Planning Hot or Cold Pack Recommendations To Nursing Amount of Assist Needed 1 Person Assist Discharge Recommendations PT Discharge Recommendations Home with Assistance Outpatient PT
--- NOTE | 2017-11-18 11:15 | PC.NURSE ---
Discharge teaching provided. Pt scheduled PT with [facility] to start next week and has pain medication at home. No questions, IV cath removed. Await ride.
== END 2017-11-18 11:52 | disposition home or self-care (01) | DRG 468 ==
PROVIDERS: Admitting Provider Orthopaedic Surgery; Referring Provider Orthopaedic Surgery; Visit Provider Orthopaedic Surgery
PROC: 0SRB02Z Replacement of Left Hip Joint with Metal on Polyethylene Synthetic Substitute, Open Approach (ICD-10-PCS; principal; 2017-11-17 12:45)
DX: T84.021A Dislocation of internal left hip prosthesis, initial encounter (principal)
CPT/HCPCS: 36415; 72170; 85014; 85018; 87070; 87075; 87205; 97116; 97161; 97530; 97535; C1776; J0690; J1100; J2250; J2274; J2405; J2704

== ENCOUNTER 2018-07-26 18:05 | Emergency (ER) | payer MEDICARE, OTHER, SELFPAY ==
[2017-11-17 17:09] VITALS: BMI 27.6
[2018-07-26] VITALS (14 sets, daily range): BP systolic 125–154; BP diastolic 52–82; PULSE 60–76; RESP 12–16; TEMP 37–37.3; O2SAT 92–100; BMI 29.1
--- NOTE | 2018-07-26 18:24 | ED_ITS ---
HPI - Extremity Injury (Lower) General Chief Complaint: Extremity Injury, Lower Stated Complaint: left hip dislocation x30 mins ago Time Seen by Provider: 07/26/18 18:23 Source: patient Mode of arrival: wheelchair Limitations: no limitations History of Present Illness HPI Narrative: 68-year-old male who is otherwise healthy. Last year had a left total hip arthroplasty. Since then he has had 6 prior dislocations. Three of which were after the initial surgery. The another 3 after a revision. He stated that he has been taken to the operating room in the past for these dislocations to have it reduced. He also states that he has had it reduced to the emergency department. Stated that earlier today he was bending over when he felt like his hip dislocated. Has been unable to put pressure on it since then. No other injuries. Related Data Home Medications Medication Instructions Recorded Confirmed Probiotic 1 cap PO DAILY 11/11/17 11/17/17 amoxicillin 500 mg PO .ONCE 11/11/17 11/17/17 Previous Rx's Medication Instructions Recorded acetaminophen 975 mg PO TID #0 tab 11/18/17 aspirin 81 mg PO BID #0 tab 11/18/17 Allergies Allergy/AdvReac Type Severity Reaction Status Date / Time No Known Drug Allergies Allergy Verified 11/17/17 11:23 Review of Systems Constitutional Denies headache(s) ENT Ears, Nose, Mouth, and Throat: Denies vertigo and Denies headache(s) Cardiovascular Denies chest pain and Denies dyspnea Respiratory Denies dyspnea Gastrointestinal Gastrointestinal: Denies abdominal pain, Denies nausea and Denies vomiting Genitourinary Denies dysuria Musculoskeletal Reports arthralgias (Left hip) Integumentary/Breasts Denies rash Neurologic Denies confusion, Denies vertigo and Denies headache(s) Psychiatric Denies confusion Hematologic/Lymphatic Denies easy bleeding and Denies easy bruising [facility] Medical History Amputated toe of left foot (Acute) Arthritis (Acute) Hearing loss (Acute) History of aspiration pneumonitis (Acute) History of bronchitis (Acute) History of sinusitis (Acute) Impaired vision (Acute) Muscle cramps (Acute) Osteoarthritis of left hip (Acute) Recent URI (Acute) Surgical History H/O knee surgery (Acute) History of carpal tunnel release (Acute) History of colonoscopy (Acute) History of tonsillectomy (Acute) History of total knee arthroplasty (Acute) Social History household members: significant other Smoking Status: Never smoker Social History household members: significant other Smoking Status: Never smoker Exam Initial Vital Signs Initial Vital Signs: Vital Signs Temperature 99.1 F 07/26/18 18:11 Pulse Rate 76 07/26/18 18:11 Respiratory Rate 12 07/26/18 18:11 Blood Pressure 144/76 H 07/26/18 18:11 Pulse Oximetry 98 07/26/18 18:11 Const General: cooperative, well developed, well groomed and No acute distress Orientation: alert and awake HENMT Head: normal to inspection and normocephalic Resp Effort & Inspection: normal respiratory effort Auscultation: clear to auscultation bilaterally Cardio Rate: regular rate Rhythm: regular rhythm GI Inspection: non-distended Palpation: soft Skin Lesions: no lesions Rashes: no rashes Neuro General: alert and awake Cognition: normal cognition Speech: speech normal Extrem Other: Left lower extremity shortened and internally rotated. Psych Appearance: grossly normal and well kempt Procedures Orthopedic Joint Reduction Joint #1: Time Out Performed: Yes Side: left Joint Reduction Location: hip Analgesia: procedural sedation Technique used: direct manipulation Post-reduction neuro exam: intact and no change Post-reduction vascular: intact and no change Post Reduction X-Ray Obtained: Yes Post Reduction X-Ray Results: reduced Splint Applied: No Patient Tolerated Procedure: Well and No complications Procedural Sedation Patient Age: Patient is 5yrs or older Consent signed: Yes Time out performed: Yes Indication: fracture/dislocation reduction ASA Class: I Mallampati Airway Classification: Class II Preparation: groundwater monitoring technician applied, pulse oximeter, capnometry used and supplemental O2 applied IV Propofol dose (mg): 80 ED Sedation Level: Moderate (Concious) Patient Tolerated Procedure: Well and No complications Complications: none Course Orders Ordered: ED Orders 07/26/18 18:28 XR hip w pel if done LT 2V Stat 07/26/18 19:15 Basic Metabolic Panel Stat Complete Blood Count AUTO DIFF Stat 07/26/18 19:53 XR hip w pel if done LT 2V Stat Discontinued Medications Propofol (Diprivan) 80 mg IV NOW ONE Stop: 07/26/18 19:55 Last Admin: 07/26/18 19:47 Dose: 80 mg Vital Signs - 8 hr 07/26/18 18:11 07/26/18 18:35 07/26/18 19:39 Temperature 99.1 F 98.6 F Pulse Rate 76 71 63 Respiratory Rate 12 16 Blood Pressure 144/76 H Blood Pressure [Right Arm] 141/68 H 149/70 H Pulse Oximetry 98 99 100 07/26/18 19:40 07/26/18 19:46 07/26/18 19:48 Temperature Pulse Rate 64 69 71 Respiratory Rate Blood Pressure Blood Pressure [Right Arm] 141/82 H 154/69 H 144/65 H Pulse Oximetry 100 100 95 07/26/18 19:50 07/26/18 19:51 07/26/18 19:54 Temperature Pulse Rate 66 60 63 Respiratory Rate Blood Pressure Blood Pressure [Right Arm] 144/60 H 129/60 129/52 L Pulse Oximetry 92 96 99 07/26/18 19:57 07/26/18 20:01 07/26/18 20:10 Temperature Pulse Rate 69 63 63 Respiratory Rate Blood Pressure Blood Pressure [Right Arm] 125/66 127/57 L 137/65 Pulse Oximetry 99 100 100 07/26/18 20:15 Temperature Pulse Rate 61 Respiratory Rate Blood Pressure Blood Pressure [Right Arm] 142/72 H Pulse Oximetry 100 MDM - Extremity Injury (Lower) Lab Data Attestation: I reviewed the patient's lab results. Result diagrams: 07/26/18 19:15 07/26/18 19:15 Lab Results 07/26/18 07/26/18 Range/Units 19:15 19:15 WBC 5.9 (4.5-11.0) X10^3/uL RBC 4.37 L (4.5-5.9) X10^6/uL Hgb 13.9 (13.5-17.5) g/dL Hct 41.2 (41-53) % MCV 94.2 (80-100) fL MCH 31.9 (26-34) PG MCHC 33.9 (30-36) % RDW 14.3 (11.6-14.8) % Plt Count 163 (150-400) X10^3/uL Neut % (Auto) 67.5 (50-75) % Lymph % (Auto) 22.0 L (25-40) % [place] % (Auto) 9.4 (3-14) % Eos % (Auto) 0.7 L (2-4) % Baso % (Auto) 0.4 (0-2) % Neut # (Auto) 4000 (4408-8662) /uL Lymph # (Auto) 1300 (9290-3577) /uL [place] # (Auto) 500 (0-900) /uL Eos # (Auto) 0 (0-450) /uL Baso # (Auto) 0 (0-100) /uL Sodium 139 (137-145) mmol/L Potassium 4.4 (3.4-5.1) mmol/L Chloride 104 (98-107) mmol/L Carbon Dioxide 28 (22-32) mmol/L BUN 24 H (9-20) mg/dL Creatinine 0.80 (0.66-1.25) mg/dL Estimated GFR > 60.0 (>60) mL/min BUN/Creatinine Ratio 30.0 H (6-22) Glucose 105 (80-110) mg/dL Calcium 9.1 (8.4-10.2) mg/dL Imaging Data X-ray hip: Radiologist's impression: [address] [address] XRay Report Signed Patient: Domenico Bowles [facility]#: [id number] : 1Acct:[id number] Age/Sex: 68 / MDate of Service: 07/26/18 Loc: ED Accession Number: [id number] Procedure: XR hip w pel if done LT 2V Ordering Provider: Gopal Salazar D.O. PROCEDURE: XR HIP W PEL IF DONE LT 2V INDICATIONS: Possible dislocation TECHNIQUE: AP pelvis with lateral view(s) of the left hip(s). COMPARISON: [facility]AINA Weiss, [facility]EL[facility] WITH LAT[facility] HIP [facility], [facility]2017, 15:18. FINDINGS: Bones: There is a left hip prosthesis. The prostatic femoral head is posterior superiorly dislocated. Pelvic ring appears intact. No suspicious bony lesions. Soft tissues: The visualized bowel gas pattern is normal. No suspicious soft tissue calcifications. IMPRESSION: Left hip prosthesis dislocation. Dictated by: Edilson Angela M.D. on 07/26/2018 at 18:52 Approved by: Edilson Angela M.D. on 07/26/2018 at 18:53 Post reduction x-ray hip: Radiologist's impression: [place] [address] XRay Report Signed Patient: Domenico Bowles MMR#: [id number] : 1950cct:[id number] Age/Sex: 68 / MDate of Service: 07/26/18 Loc: ED Accession Number: [id number] Procedure: XR hip w pel if done LT 2V Ordering Provider: Gopal Salazar D.O. PROCEDURE: XR HIP W PEL IF DONE LT 2V INDICATIONS: Post reduction TECHNIQUE: 2 views of the hip were acquired. COMPARISON: [facility], CR, XR PELVIS WITH LATERAL HIP LEFT, 05/29/2018, 11:08. [facility], CR, XR HIP W PEL IF DONE LT 2V, 07/26/2018, 18:36. FINDINGS: Bones: Left hip arthroplasty. Left hip prosthesis dislocation has been reduced. No fractures. No suspicious bony lesions. The visualized pelvic ring appears intact. Soft tissues: No suspicious soft tissue calcifications or masses. IMPRESSION: Left hip prosthesis in anatomic alignment. Dictated by: Edilson Angela M.D. on 07/26/2018 at 20:14 Approved by: Edilson Angela M.D. on 07/26/2018 at 20:15 MDM Narrative Medical decision making narrative: X-ray on arrival confirmed left hip dislocation without signs of fracture. Patient was sedated with propofol. Hip was reduced after he was fully sedated. His knee was bent at 90? in his hip was flexed to 90?. Upward and outward traction was applied with counter traction provided by another individual in the pelvis. The hip was then placed in more f lexion and in ab duction. The hip relocated easily. Postprocedure films confirmed relocation. Patient recovered from sedation. He was able to ambulate. Is instructed to contact his orthopedic surgeon secondary to the multiple dislocations. Patient expressed understanding and agreement with plan. Discharge Plan Departure Patient Disposition: Home Clinical Impression: Closed dislocation of left hip Qualifiers: Encounter type: initial encounter Qualified Code(s): S73.005A - Unspecified dislocation of left hip, initial encounter Discharge Date/Time: 07/26/18 20:40 Interventions: ED Discharge Assessment Last Done: 07/26/18 20:50 Instructions: DI for Hip Dislocation -- Adult Activity Restrictions/Additional Instructions: I do recommend that tomorrow you contact your orthopedic surgeon to let him know that your hip dislocated again. Avoid positions that caused her hip to dislocate. Return to emergency department for any new or worsening symptoms Prescriptions: No Action amoxicillin 500 mg Capsule 500 mg PO .ONCE RF: 0 Probiotic 1 cap PO DAILY RF: 0 acetaminophen 325 mg Tablet 975 mg PO TID Qty: 0 RF: 0 aspirin 81 mg Tablet,Delayed Release (Dr/Ec) 81 mg PO BID Qty: 0 RF: 0
--- NOTE | 2018-07-26 18:28 | DI.RAD.S_ITS ---
PROCEDURE: XR HIP W PEL IF DONE LT 2V INDICATIONS: Possible dislocation TECHNIQUE: AP pelvis with lateral view(s) of the left hip(s). COMPARISON: [facility], CR, XR PELVIS WITH LATERAL HIP LEFT, 05/29/2018, 11:08. [facility], CR, XR PELVIS WITH LATERAL HIP LEFT, 11/27/2017, 13:50. [facility], CR, XR PELVIS 1-2V, 11/17/2017, 15:18. FINDINGS: Bones: There is a left hip prosthesis. The prostatic femoral head is posterior superiorly dislocated. Pelvic ring appears intact. No suspicious bony lesions. Soft tissues: The visualized bowel gas pattern is normal. No suspicious soft tissue calcifications. IMPRESSION: Left hip prosthesis dislocation. Dictated by: Edilson Angela M.D. on 07/26/2018 at 18:52 Approved by: Edilson Angela M.D. on 07/26/2018 at 18:53
--- NOTE | 2018-07-26 18:31 | CM.MNRNOTE ---
pt c/o left leg dislocated pt states injury happened when he was lifting an object today. pt states he has had it relocated at least 3 times this year as well as hip replacement.
[2018-07-26 19:21] LABS: Add Manual Diff / Slide Review NO; Basophils Absolute Auto 0 /uL (0-100); Basophils Percent Auto 0.4 % (0-2); Eosinophils Absolute Auto 0 /uL (0-450); Eosinophils Percent Auto 0.7 % (2-4); Hematocrit 41.2 % (41-53); Hemoglobin 13.9 g/dL (13.5-17.5); Lymphocytes Absolute Auto 1300 /uL (1100-4500); Mean Corpuscular HGB Conc 33.9 % (30-36); Mean Corpuscular Hemoglobin 31.9 PG (26-34); Mean Corpuscular Volume 94.2 fL (80-100); Monocytes Absolute Auto 500 /uL (0-900); Monocytes Percent Auto 9.4 % (3-14); Neutrophils Absolute Auto 4000 /uL (1500-7000); Neutrophils Percent Auto 67.5 % (50-75); Platelet Count 163 X10^3/uL (150-400); Red Blood Cell Count 4.37 X10^6/uL (4.5-5.9); Red Cell Distribution Width 14.3 % (11.6-14.8); White Blood Cell Count 5.9 X10^3/uL (4.5-11.0)
[2018-07-26 19:31] LABS: Blood Urea Nitrogen 24 mg/dL (9-20); Calcium 9.1 mg/dL (8.4-10.2); Carbon Dioxide 28 mmol/L (22-32); Chloride 104 mmol/L (98-107); Estimated Glomerular Filt Rate > 60.0 mL/min (>60); Glucose 105 mg/dL (80-110); HEMOLYSIS 26 (0-50); Potassium 4.4 mmol/L (3.4-5.1); Sodium 139 mmol/L (137-145)
[2018-07-26] MEDS: PROPOFOL 200 MG/20 ML VIAL 80 MG IV (19:47)
--- NOTE | 2018-07-26 19:53 | DI.RAD.S_ITS ---
PROCEDURE: XR HIP W PEL IF DONE LT 2V INDICATIONS: Post reduction TECHNIQUE: 2 views of the hip were acquired. COMPARISON: [facility], CR, XR PELVIS WITH LATERAL HIP LEFT, 05/29/2018, 11:08. [facility], CR, XR HIP W PEL IF DONE LT 2V, 07/26/2018, 18:36. FINDINGS: Bones: Left hip arthroplasty. Left hip prosthesis dislocation has been reduced. No fractures. No suspicious bony lesions. The visualized pelvic ring appears intact. Soft tissues: No suspicious soft tissue calcifications or masses. IMPRESSION: Left hip prosthesis in anatomic alignment. Dictated by: Edilson Angela M.D. on 07/26/2018 at 20:14 Approved by: Edilson Angela M.D. on 07/26/2018 at 20:15
== END 2018-07-26 20:40 | disposition home or self-care (01) ==
PROVIDERS: Emergency Provider Emergency Medicine
DX: S73.005A Unspecified dislocation of left hip, initial encounter (principal)
CPT/HCPCS: 27257; 36415; 73502; 80048; 85025; 94770; 99152; 99284; 99285; J2704

== ENCOUNTER → 2018-08-27 17:38 | Outpatient (CLI) | payer MEDICARE, OTHER, SELFPAY ==
[2017-11-17 17:09] VITALS: BMI 27.6
--- NOTE | 2018-08-27 17:40 | DI.MRI.S_ITS ---
PROCEDURE: MR CERVICAL SPINE WO CON INDICATIONS: CERVICAL RADICULOPATHY TECHNIQUE: Noncontrast sagittal T1 spin echo and T2 fast spin echo, sagittal STIR, foraminal oblique sagittal T2 fast spin echo, and axial gradient echo or T2 fast spin echo through the cervical spine. COMPARISON: [facility] [place], CR, XR CERVICAL SPINE 2 OR 3 VIEWS, 08/25/2018, 10:08. FINDINGS: Image quality: Excellent. Alignment and Curvature: There is normal bony alignment. Bone Marrow: Marrow demonstrates normal overall signal. Spinal Cord: Visualized spinal cord has normal size and signal. No cerebellar tonsillar herniation. Paraspinous Soft Tissues: No paravertebral masses. Prevertebral soft tissues are normal in thickness. C2-C3: Preserved disc height. Moderate disc desiccation. There is diffuse posterior disc bulge. Mild bilateral facet arthropathy. The central canal is moderately narrowed. Moderate bilateral foraminal stenosis. No definitive nerve root impingement. C3-C4: Preserved disc height. Moderate disc desiccation. There is diffuse posterior disc bulge and disc protrusion. Moderate bilateral facet arthropathy. The central canal is severely narrowed. [id number] bilateral foraminal stenosis. Possible definitive nerve root impingement. C4-C5: Moderate loss of disc height. Moderate disc desiccation. There is diffuse posterior disc bulge and disc osteophyte complex. Severe left and moderate right facet arthropathy. The central canal is severely narrowed. Moderate to severe bilateral foraminal stenosis. Possible bilateral nerve root impingement. C5-C6: Moderate loss of disc height. Moderate disc desiccation. There is diffuse posterior disc bulge and disc osteophyte complex. Moderate bilateral facet arthropathy. The central canal is severely narrowed. Severe bilateral foraminal stenosis. Bilateral nerve root impingement. C6-C7: Severe loss of disc height. Moderate disc desiccation. There is diffuse posterior disc bulge and disc osteophyte complex. Severe bilateral facet arthropathy. The central canal is severely narrowed. Severe bilateral foraminal stenosis. Bilateral nerve root impingement. C7-T1: Normal appearance. IMPRESSION: 1. Multilevel degenerative disc disease and facet arthropathy as described. 2. Severe central canal stenosis at C3-C4, C4-C5, C5-C6 and C6-C7. 3. Multilevel foraminal stenosis as described. Dictated by: Edilson Angela M.D. on 08/28/2018 at 9:39 Approved by: Edilson Angela M.D. on 08/28/2018 at 10:33
== END ==
PROVIDERS: Visit Provider Orthopaedic Surgery
DX: M50.11 Cervical disc disorder with radiculopathy, high cervical region (principal); M47.22 Other spondylosis with radiculopathy, cervical region; M48.02 Spinal stenosis, cervical region
CPT/HCPCS: 72141

== ENCOUNTER 2019-09-28 10:47 | Emergency (ER) | payer MEDICARE, OTHER, SELFPAY ==
[2017-11-17 17:09] VITALS: BMI 27.6
[2019-09-28] VITALS (23 sets, daily range): BP systolic 120–172; BP diastolic 57–81; PULSE 56–67; RESP 13–29; TEMP 37.1; O2SAT 96–100; BMI 27.9
--- NOTE | 2019-09-28 10:52 | DI.RAD.S_ITS ---
PROCEDURE: XR HIP W PEL IF DONE LT 2V INDICATIONS: possible Dislocation TECHNIQUE: AP pelvis with lateral view(s) of the left hip(s). COMPARISON: [facility], CR, XR HIP W PEL IF DONE LT 2V, 07/26/2018, 19:52. FINDINGS: Bones: Patient is status post prior left total hip arthroplasty. There is superior and posterior dislocation of left femoral head prosthesis in relation to left acetabular prosthesis. No gross fracture is identified. Pelvic ring appears intact. No suspicious bony lesions. Soft tissues: The visualized bowel gas pattern is normal. No suspicious soft tissue calcifications. IMPRESSION: Posterior superior dislocation at left hip prosthesis as above. No definite fracture is seen. Dictated by: Perico Breen M.D. on 09/28/2019 at 11:09 Approved by: Perico Breen M.D. on 09/28/2019 at 11:10
--- NOTE | 2019-09-28 11:16 | ED.LOWEXIN ---
HPI - Extremity Injury (Lower) General Chief Complaint: Extremity Injury, Lower Stated Complaint: left hip dislocated Time Seen by Provider: 09/28/19 11:00 Source: patient and family Mode of arrival: Wheelchair Limitations: no limitations History of Present Illness HPI Narrative: Patient complains of pain to left hip. He states his left hip prosthesis is dislocated. He bent over this morning and felt it dislocate. This is not new. Had hip replacement over a year ago at this hospital. Since then has had a dislocations. Last dislocation was 3 days ago. Patient usually gets propofol for sedation and reduction of the hip in the emergency department and discharged home. His orthopedic surgeon locally is aware and is trying to get specialist involved MD complaint: hip injury Related Data Home Medications Medication Instructions Recorded Confirmed Probiotic 1 cap PO DAILY 11/11/17 11/17/17 amoxicillin 500 mg PO .ONCE 11/11/17 11/17/17 Previous Rx's Medication Instructions Recorded acetaminophen 975 mg PO TID #0 tab 11/18/17 aspirin 81 mg PO BID #0 tab 11/18/17 Allergies Allergy/AdvReac Type Severity Reaction Status Date / Time No Known Drug Allergies Allergy Verified 09/28/19 10:55 Review of Systems Review of Systems Narrative: GENERAL: Denies chills, fatigue, malaise, fever, sweats. MUSCULOSKELETAL: Complains of left hip pain SKIN: Denies rash, skin lesions, or other NEUROLOGIC: Denies weakness, headache, numbness, change in speech, confusion, seizures, incoordination. PSYCHIATRIC: No concerning psychosocial issues. ROS Unobtainable: All systems reviewed & are unremarkable except as noted in HPI and below Patient History Medical History Amputated toe of left foot (Acute) Arthritis (Acute) Hearing loss (Acute) History of aspiration pneumonitis (Acute) History of bronchitis (Acute) History of sinusitis (Acute) Impaired vision (Acute) Muscle cramps (Acute) Osteoarthritis of left hip (Acute) Recent URI (Acute) Surgical History H/O knee surgery (Acute) History of carpal tunnel release (Acute) History of colonoscopy (Acute) History of tonsillectomy (Acute) History of total knee arthroplasty (Acute) Social History household members: significant other Smoking Status: Never smoker alcohol intake: current Smoking Status: Never smoker alcohol intake frequency: 0-2 drinks per day Substance Use Type: does not use Exam Narrative Exam Narrative: GENERAL: patient appears stated age. Well-nourished, well-developed patient, in no distress, not toxic HEAD: Atraumatic. Normocephalic. EYES: Pupils equal round and reactive. Extraocular motions intact. No scleral icterus. No injection or drainage. ENT: Nose without bleeding, purulent drainage. Throat without erythema, tonsillar hypertrophy or exudate. Airway patent. Mallampati score of 2. NECK: Trachea midline. Non tender EXTREMITIES: No edema or joint tenderness. Patient and short. Shoes off. Strong pedal pulse light touch intact in toes. Nontender ankle and knee. Leg and foot warm soft and pink. Left leg shortened compared to the right NEURO: AOx3. SKIN: No rash or erythema of visible areas PSYCH: Not anxious, is cooperative Initial Vital Signs Initial Vital Signs: Vital Signs Temperature 98.7 F 09/28/19 10:50 Pulse Rate 66 09/28/19 10:50 Respiratory Rate 14 09/28/19 10:50 Blood Pressure 172/74 H 09/28/19 10:50 Pulse Oximetry 97 09/28/19 10:50 Procedures Orthopedic Joint Reduction Left hip: Time Out Performed: Yes Side: left Joint Reduction Location: hip Analgesia: procedural sedation Technique used: traction/counter-traction Post-reduction neuro exam: intact Post-reduction vascular: intact Post Reduction X-Ray Obtained: Yes Post Reduction X-Ray Results: reduced Splint Applied: No Patient Tolerated Procedure: Well Procedural Sedation Consent signed: Yes Time out performed: Yes Indication: other (Left hip dislocation) Presedation Evaluation: Last meal 7:00 p.m. last night. Has been NPO since then. Patient awake alert oriented, consent reviewed with patient and sign. ASA Class: I Mallampati Airway Classification: Class I Time of Last PO Intake: 19:00 Preparation: cardiac technician applied, pulse oximeter, supplemental O2 applied, suction/airway equipment at bedside and IV secured IV Propofol dose (mg): 90 ED Sedation Level: Moderate (Concious) Patient Tolerated Procedure: Well Complications: none Additional Comments: Patient tolerated procedure very well. No hypoxia or hypotension during event. No aspiration. Course Orders Ordered: ED Orders 09/28/19 10:52 XR hip w pel if done LT 2V Stat 09/28/19 13:13 XR pelvis 1-2V Stat Discontinued Medications Ondansetron HCl (Zofran) 4 mg IV NOW ONE Stop: 09/28/19 13:01 Last Admin: 09/28/19 13:04 Dose: 4 mg Documented by: SHER Propofol (Diprivan) 95 mg 1 mg/kg (95 mg) IV NOW ONE Stop: 09/28/19 12:58 Last Admin: 09/28/19 13:10 Dose: 95 mg Documented by: SHER Reevaluation(s) Reevaluation #1: Patient awake alert orient x4. Pain is controlled. Hip is back in place confirmed by repeat x-ray. Neurovascularly intact foot warm soft and pink strong pedal pulses light touch intact to foot and toes. Leg is not shortened or rotated on the left. It aligns equally with the right. Time: 13:38 Consultations Consultation #1: Spoke with patient's orthopedist dr yuan, reviewed x-ray with him. Informs to proceed for close reduction of the left hip. Traction countertraction. No hypoxia. Patient is at baseline, no altered mental status. No dyspnea. Patient is very talkative. Patient is at baseline according to at bedside Time: 12:39 Vital Signs Vital signs: Vital Signs - 8 hr 09/28/19 10:50 09/28/19 11:29 09/28/19 11:30 Temperature 98.7 F Pulse Rate 66 67 Respiratory Rate 14 Blood Pressure 172/74 H Pulse Oximetry 97 100 99 09/28/19 12:00 09/28/19 12:30 09/28/19 12:36 Temperature Pulse Rate 64 63 66 Respiratory Rate 18 18 20 Blood Pressure 157/75 H Pulse Oximetry 99 98 100 09/28/19 12:40 09/28/19 12:45 09/28/19 12:50 Temperature Pulse Rate 64 65 59 L Respiratory Rate 18 29 H 16 Blood Pressure 144/70 H 140/71 151/74 H Pulse Oximetry 100 99 98 09/28/19 12:55 09/28/19 13:00 09/28/19 13:05 Temperature Pulse Rate 65 65 64 Respiratory Rate 17 22 16 Blood Pressure 156/81 H 157/71 H Pulse Oximetry 100 99 100 09/28/19 13:06 09/28/19 13:10 09/28/19 13:15 Temperature Pulse Rate 62 62 57 L Respiratory Rate 15 18 15 Blood Pressure 154/76 H 129/60 120/57 L Pulse Oximetry 100 96 96 09/28/19 13:20 09/28/19 13:25 09/28/19 13:30 Temperature Pulse Rate 56 L 57 L 60 Respiratory Rate 22 17 23 Blood Pressure 123/60 136/64 Pulse Oximetry 98 99 100 09/28/19 13:35 09/28/19 13:40 09/28/19 13:45 Temperature Pulse Rate 61 59 L 65 Respiratory Rate 18 18 21 Blood Pressure 149/81 H 145/75 H 153/76 H Pulse Oximetry 100 100 99 09/28/19 13:50 09/28/19 13:55 Temperature Pulse Rate 60 61 Respiratory Rate 22 13 Blood Pressure 136/66 146/70 H Pulse Oximetry 100 99 MDM - Extremity Injury (Lower) Differential Diagnosis Differential diagnosis: Likely other (Hip dislocation) Medical Records Attestation: I reviewed the patient's medical records. Imaging Data Extremity x-ray #1: Radiologist's Impression: [address] [address] XRay Report Signed Patient: Domenico Bowles [facility]#: [id number] : 1950cct:[id number] Age/Sex: 69 / MDate of Service: 09/28/19 Loc: ED Accession Number: [id number] Procedure: XR hip w pel if done LT 2V Ordering Provider: Osbaldo Mitchell MD PROCEDURE: XR HIP W PEL IF DONE LT 2V INDICATIONS: possible Dislocation TECHNIQUE: AP pelvis with lateral view(s) of the left hip(s). COMPARISON: [facility], , XR HIP W PEL IF DONE LT 2V, 07/26/2018, 19:52. FINDINGS: Bones: Patient is status post prior left total hip arthroplasty. There is superior and posterior dislocation of left femoral head prosthesis in relation to left acetabular prosthesis. No gross fracture is identified. Pelvic ring appears intact. No suspicious bony lesions. Soft tissues: The visualized bowel gas pattern is normal. No suspicious soft tissue calcifications. IMPRESSION: Posterior superior dislocation at left hip prosthesis as above. No definite fracture is seen. Dictated by: Perico Breen M.D. on 09/28/2019 at 11:09 Approved by: Perico Breen M.D. on 09/28/2019 at 11:10 Extremity x-ray #2: Radiologist's Impression: [address] [id number] XRay Report Signed Patient: Domenico Bowles [facility]#: [id number] : 1950cct:[id number] Age/Sex: 69 / MDate of Service: 09/28/19 Loc: ED Accession Number: [id number] Procedure: XR pelvis 1-2V Ordering Provider: Claude Anders PROCEDURE: XR PELVIS 1-2V INDICATIONS: post reduction, left hip TECHNIQUE: 1 view of the lower pelvis acquired. COMPARISON: [facility], CR, XR HIP W PEL IF DONE LT 2V, 09/28/2019, 11:06. [facility], CR, XR PELVIS 1-2V, 11/17/2017, 15:18. FINDINGS: Bones: Patient is status post left hip arthroplasty, with hardware components in expected positions. The hip joint appears congruent. The visualized bony structures appear intact. Soft tissues: Overlying postoperative changes are noted. No suspicious soft tissue densities. IMPRESSION: Status post reduction of left hip prosthesis dislocation. There is normal association of the femoral and acetabular components of the left disc prosthesis following reduction. Dictated by: Varsha Melgar MD, PhD on 09/28/2019 at 13:30 Approved by: Varsha Melgar MD, PhD on 09/28/2019 at 13:31 [facility] Narrative Medical decision making narrative: Time 1:45 p.m.. The patient is appropriate for discharge home. Is awake alert orient x4. Hemodynamically stable. Not hypoxic not hypotensive not tachypneic. Patient is at baseline. No left hip pain. is driving. 45 minutes since procedure and patient has returned to baseline. Discharge Plan Departure Patient Disposition: Home Clinical Impression: Closed posterior dislocation of left hip Qualifiers: Encounter type: initial encounter Qualified Code(s): S73.015A - Posterior dislocation of left hip, initial encounter Discharge Date/Time: 09/28/19 14:11 Instructions: DI for Hip Dislocation -- Adult Activity Restrictions/Additional Instructions: No driving today. Call your orthopedist for follow-up office appointment for revision of the left hip. Return if worse or if any questions or concerns. Prescriptions: No Action amoxicillin 500 mg Capsule 500 mg PO .ONCE RF: 0 Probiotic 1 cap PO DAILY RF: 0 acetaminophen 325 mg Tablet 975 mg PO TID Qty: 0 RF: 0 aspirin 81 mg Tablet,Delayed Release (Dr/Ec) 81 mg PO BID Qty: 0 RF: 0
[2019-09-28] MEDS: ONDANSETRON 4 MG/2 ML INJ IV (13:04)
[2019-09-28] MEDS: propofoL 200 MG/20 ML VIAL 95 MG IV (13:10)
--- NOTE | 2019-09-28 13:13 | DI.RAD.S_ITS ---
PROCEDURE: XR PELVIS 1-2V INDICATIONS: post reduction, left hip TECHNIQUE: 1 view of the lower pelvis acquired. COMPARISON: [facility], [place], XR HIP W PEL IF DONE LT 2V, 09/28/2019, 11:06. [facility], [place], XR PELVIS 1-2V, 11/17/2017, 15:18. FINDINGS: Bones: Patient is status post left hip arthroplasty, with hardware components in expected positions. The hip joint appears congruent. The visualized bony structures appear intact. Soft tissues: Overlying postoperative changes are noted. No suspicious soft tissue densities. IMPRESSION: Status post reduction of left hip prosthesis dislocation. There is normal association of the femoral and acetabular components of the left disc prosthesis following reduction. Dictated by: Varsha Melgar MD, PhD on 09/28/2019 at 13:30 Approved by: Varsha Melgar MD, PhD on 09/28/2019 at 13:31
== END 2019-09-28 14:11 | disposition home or self-care (01) ==
PROVIDERS: Emergency Provider Emergency Medicine
DX: S73.015A Posterior dislocation of left hip, initial encounter (principal)
CPT/HCPCS: 27265; 36415; 72170; 73502; 96374; 99285; J2405; J2704

== ENCOUNTER 2019-10-02 16:44 | Emergency (ER) | payer MEDICARE, OTHER, SELFPAY ==
[2017-11-17 17:09] VITALS: BMI 27.6
[2019-10-02] VITALS (30 sets, daily range): BP systolic 117–151; BP diastolic 58–74; PULSE 62–83; RESP 11–29; TEMP 36.8; O2SAT 95–100; BMI 28.3
--- NOTE | 2019-10-02 | DI.RAD.S_ITS ---
PROCEDURE: XR HIP LT 1V INDICATIONS: POST REDUCTION TECHNIQUE: 1 views of the hip were acquired. COMPARISON: [facility], CR, XR HIP W PEL IF DONE LT 2V, 10/02/2019, 16:47. FINDINGS: Bones: Satisfactory reduction of dislocated total hip arthroplasty. No acute fracture or dislocation seen. Soft tissues: No suspicious soft tissue calcifications or masses. IMPRESSION: Satisfactory reduction of dislocated total hip prosthesis. Dictated by: Marty Rojas M.D. on 10/02/2019 at 18:20 Approved by: Marty Rojas M.D. on 10/02/2019 at 18:21
--- NOTE | 2019-10-02 16:52 | DI.RAD.S_ITS ---
PROCEDURE: XR HIP W PEL IF DONE LT 2V INDICATIONS: left hip dislocated TECHNIQUE: AP pelvis with lateral view(s) of the left hip(s). COMPARISON: [facility], CR, XR PELVIS 1-2V, 09/28/2019, 13:15. [facility], CR, XR HIP W PEL IF DONE LT 2V, 07/26/2018, 19:52. [facility], CR, XR HIP W PEL IF DONE LT 2V, 07/26/2018, 18:36. [facility], CR, XR HIP W PEL IF DONE LT 2V, 09/28/2019, 11:06. FINDINGS: Bones: The left prosthetic hip is dislocated superiorly and posteriorly to the prosthetic acetabular cup. No associated fractures are seen. Age-appropriate lower lumbar spine degenerative changes are noted. Soft tissues: The visualized bowel gas pattern is normal. No suspicious soft tissue calcifications. Vasectomy clips can be seen. IMPRESSION: The left prosthetic hip is dislocated superiorly and posteriorly to the acetabular cup, which is similar to 09/28/2019. Dictated by: Antwan Pastrana M.D. on 10/02/2019 at 16:32 Approved by: Antwan Pastrana M.D. on 10/02/2019 at 16:33
--- NOTE | 2019-10-02 17:12 | ED.LOWEXIN ---
HPI - Extremity Injury (Lower) General Chief Complaint: Extremity Injury, Upper Stated Complaint: Dislocated hip Time Seen by Provider: 10/02/19 16:51 Source: patient Mode of arrival: EMS Limitations: no limitations History of Present Illness HPI Narrative: Patient is an 69-year-old male who presents with recurrent hip dislocations in fact this is the 3rd time in 8 days. He previously had 3 dislocations after the 1st surgery and 3 more dislocations after the 2nd, making this the 3rd dislocation of this left hip. He states he was driving his boat he was sitting down and bent down to get something when it popped out. He denies any pain at the moment. He says 95 mg of propofol generally helps get it back in. Related Data Home Medications Medication Instructions Recorded Confirmed Probiotic 1 cap PO DAILY 11/11/17 11/17/17 amoxicillin 500 mg PO .ONCE 11/11/17 11/17/17 Previous Rx's Medication Instructions Recorded acetaminophen 975 mg PO TID #0 tab 11/18/17 aspirin 81 mg PO BID #0 tab 11/18/17 Allergies Allergy/AdvReac Type Severity Reaction Status Date / Time No Known Drug Allergies Allergy Verified 09/28/19 10:55 Review of Systems Review of Systems Narrative: GENERAL: Denies chills,fever HEENT: Denies throat pain RESPIRATORY: Denies dyspnea, cough, wheezing CARDIOVASCULAR: Denies chest pain, palpitations GASTROINTESTINAL: Denies nausea, vomiting MUSCULOSKELETAL: See HPI SKIN: No rash, no laceration, no pruritus NEUROLOGIC: Denies weakness, dizziness, headache, numbness 8 point review of systems is negative except for those stated above and HPI Patient History Medical History Amputated toe of left foot (Acute) Arthritis (Acute) Hearing loss (Acute) History of aspiration pneumonitis (Acute) History of bronchitis (Acute) History of sinusitis (Acute) Impaired vision (Acute) Muscle cramps (Acute) Osteoarthritis of left hip (Acute) Recent URI (Acute) Surgical History H/O knee surgery (Acute) History of carpal tunnel release (Acute) History of colonoscopy (Acute) History of tonsillectomy (Acute) History of total knee arthroplasty (Acute) Social History household members: significant other Smoking Status: Never smoker alcohol intake: current Smoking Status: Never smoker alcohol intake frequency: 0-2 drinks per day Substance Use Type: does not use Exam Initial Vital Signs Initial Vital Signs: Vital Signs Temperature 98.2 F 10/02/19 16:47 Pulse Rate 83 10/02/19 16:47 Respiratory Rate 16 10/02/19 16:47 Blood Pressure 147/67 H 10/02/19 16:47 Pulse Oximetry 98 10/02/19 16:47 GENERAL: Alert pleasant well-appearing elderly gentleman and in no acute distress. HEENT: Head atraumatic,EOMI, pupils reactive, face symmetric, moist mucous membranes CARDIOVASCULAR: Regular rate and rhythm without murmurs, rubs or gallops. RESPIRATORY: Breath sounds equal bilaterally, no wheezes rales or rhonchi. ABDOMEN: Soft, nontender. Normoactive bowel sounds all 4 quadrants. No guarding or rebound. EXTREMITIES: Normal range of motion, no clubbing or edema. Neurovascularly intact Left leg is shortened and internally rotated, good distal pedal pulse NEUROLOGICAL: Alert and oriented x4.Normal gait and speech. Cranial nerves II through XII grossly intact. SKIN: Warm, dry, no laceration, no petechiae, no rashes or lesions. Procedures Orthopedic Joint Reduction Joint #1: Time Out Performed: Yes Side: left Joint Reduction Location: hip Analgesia: procedural sedation Technique used: traction/counter-traction and direct manipulation Post-reduction neuro exam: intact Post-reduction vascular: intact Post Reduction X-Ray Obtained: Yes Post Reduction X-Ray Results: reduced Splint Applied: No Patient Tolerated Procedure: Well Procedural Sedation Consent signed: Yes Time out performed: Yes Indication: fracture/dislocation reduction ASA Class: II Mallampati Airway Classification: Class I Time of Last PO Intake: 14:00 Preparation: stencil sprayer applied, pulse oximeter, capnometry used, supplemental O2 applied, suction/airway equipment at bedside and IV secured IV Propofol dose (mg): 95 Intraservice time/total sedation time (min): 15 ED Sedation Level: Moderate (Concious) Patient Tolerated Procedure: Well Complications: hypoventilation Interventions: Airway repositioned and Assist by BVM Course Orders Ordered: ED Orders 10/02/19 16:52 XR hip w pel if done LT 2V Stat Discontinued Medications Propofol (Diprivan) 95 mg IV NOW ONE Stop: 10/02/19 16:54 Last Admin: 10/02/19 17:50 Dose: 95 mg Documented by: LIZZ Vital Signs Vital signs: Vital Signs - 8 hr 10/02/19 16:47 10/02/19 17:17 10/02/19 17:20 Temperature 98.2 F Pulse Rate 83 74 73 Respiratory Rate 16 20 Blood Pressure 147/67 H Pulse Oximetry 98 97 96 10/02/19 17:25 10/02/19 17:30 10/02/19 17:35 Temperature Pulse Rate 74 71 74 Respiratory Rate 26 H 17 21 Blood Pressure 138/65 Pulse Oximetry 97 96 96 10/02/19 17:40 10/02/19 17:45 10/02/19 17:50 Temperature Pulse Rate 73 73 73 Respiratory Rate 22 19 24 Blood Pressure Pulse Oximetry 97 99 100 10/02/19 17:54 10/02/19 17:55 10/02/19 17:57 Temperature Pulse Rate 70 70 68 Respiratory Rate 27 H 25 H 11 L Blood Pressure 151/71 H 131/74 Pulse Oximetry 100 99 100 10/02/19 18:00 10/02/19 18:04 10/02/19 18:05 Temperature Pulse Rate 68 68 67 Respiratory Rate 19 18 24 Blood Pressure 117/58 L 121/62 Pulse Oximetry 97 97 10/02/19 18:06 10/02/19 18:10 10/02/19 18:11 Temperature Pulse Rate 69 69 66 Respiratory Rate 18 26 H 28 H Blood Pressure 121/62 122/61 Pulse Oximetry 97 95 96 10/02/19 18:15 10/02/19 18:20 10/02/19 18:25 Temperature Pulse Rate 62 67 65 Respiratory Rate 17 19 13 Blood Pressure 124/70 128/67 139/68 Pulse Oximetry 98 95 96 10/02/19 18:30 10/02/19 18:35 10/02/19 18:40 Temperature Pulse Rate 64 63 67 Respiratory Rate 21 12 20 Blood Pressure 131/62 129/62 136/65 Pulse Oximetry 98 97 96 10/02/19 18:45 10/02/19 18:50 10/02/19 18:55 Temperature Pulse Rate 65 65 68 Respiratory Rate 19 29 H 13 Blood Pressure 126/72 123/69 134/70 Pulse Oximetry 98 97 97 10/02/19 19:00 10/02/19 19:05 10/02/19 19:10 Temperature Pulse Rate 68 71 69 Respiratory Rate 14 15 14 Blood Pressure 146/66 H 141/63 H 140/67 Pulse Oximetry 98 97 98 MDM - Extremity Injury (Lower) Imaging Data Extremity x-ray #1: Radiologist's Impression: PROCEDURE: XR HIP LT 1V INDICATIONS: POST REDUCTION TECHNIQUE: 1 views of the hip were acquired. COMPARISON: [facility], CR, XR HIP W PEL IF DONE LT 2V, 10/02/2019, 16:47. FINDINGS: Bones: Satisfactory reduction of dislocated total hip arthroplasty. No acute fracture or dislocation seen. Soft tissues: No suspicious soft tissue calcifications or masses. IMPRESSION: Satisfactory reduction of dislocated total hip prosthesis. Dictated by: Marty Rojas M.D. on 10/02/2019 at 18:20 Extremity x-ray #2: Radiologist's Impression: PROCEDURE: XR HIP W PEL IF DONE LT 2V INDICATIONS: left hip dislocated TECHNIQUE: AP pelvis with lateral view(s) of the left hip(s). COMPARISON: [facility], CR, XR PELVIS 1-2V, 09/28/2019, 13:15. [facility], CR, XR HIP W PEL IF DONE LT 2V, 07/26/2018, 19:52. [facility], CR, XR HIP W PEL IF DONE LT 2V, 07/26/2018, 18:36. [facility], CR, XR HIP W PEL IF DONE LT 2V, 09/28/2019, 11:06. FINDINGS: Bones: The left prosthetic hip is dislocated superiorly and posteriorly to the prosthetic acetabular cup. No associated fractures are seen. Age-appropriate lower lumbar spine degenerative changes are noted. Soft tissues: The visualized bowel gas pattern is normal. No suspicious soft tissue calcifications. Vasectomy clips can be seen. IMPRESSION: The left prosthetic hip is dislocated superiorly and posteriorly to the acetabular cup, which is similar to 09/28/2019. Dictated by: Antwan Pastrana M.D. on 10/02/2019 at 16:32 MDM Narrative Medical decision making narrative: The patient is given prescription for hip abductor, this has happened to him multiple times he is aware of what he needs to do. He is scheduled for revision in November with [facility]. Patient is ambulatory upon discharge. Discharge Plan Departure Patient Disposition: Home Clinical Impression: Closed dislocation of left hip Qualifiers: Encounter type: initial encounter Qualified Code(s): S73.005A - Unspecified dislocation of left hip, initial encounter Instructions: DI for Hip Dislocation -- Adult Activity Restrictions/Additional Instructions: *You have been diagnosed with left hip dislocation *What to do: Please follow your postoperative instructions. You been given a prescription for hip abductor. *Continue to take medications as directed *Follow up with your primary care provider in 2-3 days *Return to ER if you should have recurrent dislocation, increased weakness, numbness, tingling or pain or any new, worsening or concerning symptoms Prescriptions: No Action amoxicillin 500 mg Capsule 500 mg PO .ONCE RF: 0 Probiotic 1 cap PO DAILY RF: 0 acetaminophen 325 mg Tablet 975 mg PO TID Qty: 0 RF: 0 aspirin 81 mg Tablet,Delayed Release (Dr/Ec) 81 mg PO BID Qty: 0 RF: 0
[2019-10-02] MEDS: propofoL 200 MG/20 ML VIAL 95 MG IV (18:12)
--- NOTE | 2019-10-02 19:16 | PC.NURSE ---
Pt is doing very well. Fully recovered from sedation. No pain to L hip.
== END 2019-10-02 19:23 | disposition home or self-care (01) ==
PROVIDERS: Emergency Provider Emergency Medicine
DX: S73.005A Unspecified dislocation of left hip, initial encounter (principal)
CPT/HCPCS: 27265; 73501; 73502; 94770; 99152; 99284; 99285; J2704